=== PATIENT | female | born 1990 | race Caucasian/White ===

== ENCOUNTER 2016-07-02 21:10 | Emergency (ER) | payer MEDICAID ==
[~2016-07-02] VITALS: Ht 162.6 cm; Wt 177.3 kg
[~2016-07-02 21:10] MED LIST: 00186-0372-20 IH; AMOXICILLIN875 MG PO; PROAIR HFA0.09 MG/AC IH; SYNTHROID0.05 MG/TA PO; ULTRAM 50MG TAB50 MG PO
[2016-07-02 21:16] VITALS: TEMP 97.6
[2016-07-02 22:07] LABS: BASO % 0.6 % (0.0-2.0); EOS # 0.3 (0.0-0.7); EOS % 3.9 % (0-4.0); GRAN # 4.4 (1.4-6.5); GRAN % 63.2 % (42.2-75.2); HEMATOCRIT 38.4 % (37.0-47.0); HEMOGLOBIN 12.5 g/dl (12.5-16.0); LYMPH # 1.8 (1.2-3.4); LYMPH % 25.9 % (20.0-51.0); MEAN CELL VOLUME 89 fl (80.0-100.0); MEAN CORPUSCULAR HEMOGLOBIN 29 pg (27.0-31.0); MEAN CORPUSCULAR HGB CONC 33 g/dl (33.0-37.0); MEAN PLATELET VOLUME 9.5 fl (7.4-10.4); MONO # 0.4 (0.1-0.6); MONO % 6.1 % (1.7-9.3); PLATELET COUNT 385 K/mm3 (130-400); RED BLOOD COUNT 4.33 M/mm3 (4.10-5.30); REDCELL DISTRIBUTION WIDTH-CV 13.7 % (11.5-14.5); WHITE BLOOD COUNT 6.9 K/mm3 (4.8-10.8)
[2016-07-02 22:16] LABS: ADJUSTED CALCIUM 8.9 mg/dL (8.4-10.2); BILIRUBIN,TOTAL 0.8 mg/dL (0.0-1.0); CALCIUM 8.9 mg/dL (8.4-10.2); CREATININE, serum 0.63 mg/dL (0.52-1.25); POTASSIUM 3.8 mmol/L (3.4-5.0); TOTAL PROTEIN 7.6 gm/dL (6.4-8.2)
[2016-07-02] MEDS ORDERED: NYSTATIN POWDER15 GM TOP (23:45)
[2016-07-03 01:28] LABS: PH 6 (5-8); SQUAMOUS EPITHELIAL 20-50 /hpf; URINE APPEARANCE Cloudy; URINE BACTERIA Rare /hpf; URINE BILIRUBIN Negative (NEGATIVE); URINE BLOOD 3+ (NEGATIVE); URINE COLOR Yellow; URINE GLUCOSE Negative (NEGATIVE); URINE KETONE 2+ (NEGATIVE); URINE UROBILINOGEN Negative (NEGATIVE)
[2016-07-03 01:51] VITALS: BP 134/88; PULSE 78
== END 2016-07-03 01:53 | disposition home or self-care (01) ==
LOC: COL.ER 21:10
PROVIDERS: Emergency Medicine
DX: R10.84 Generalized abdominal pain (principal); Z98.84 Bariatric surgery status; Z98.0 Intestinal bypass and anastomosis status
CPT/HCPCS: J1170; J2405; J7030; Q9967

== ENCOUNTER 2016-07-05 05:49 | Emergency (ER) | payer MEDICAID ==
[~2016-07-05] VITALS: Ht 162.6 cm; Wt 177.3 kg
[~2016-07-05 05:49] MED LIST changes: +NYSTATIN POWDER15 GM TOP
[2016-07-05 05:52] VITALS: TEMP 98
[2016-07-05] MEDS ORDERED: DILAUDID 4MG TAB4 MG PO (05:57)
[2016-07-05] MEDS ORDERED: LOVENOX 4040 MG/0.4 SQ (05:57)
[2016-07-05] MEDS ORDERED: EPIPEN 2-PAK1 MG/ML IM (05:57)
[2016-07-05] MEDS ORDERED: NYSTATIN CREAM15 GM TP (07:03)
[2016-07-05 07:27] VITALS: BP 111/73; PULSE 66
== END 2016-07-05 07:27 | disposition home or self-care (01) ==
LOC: COL.ER 05:49
DX: B37.2 Candidiasis of skin and nail (principal)

== ENCOUNTER 2016-11-18 19:45 | Emergency (ER) | payer OTHER, MEDICAID ==
[~2016-11-18] VITALS: Ht 162.6 cm; Wt 140.9 kg
[~2016-11-18 19:45] MED LIST changes: +DILAUDID 4MG TAB4 MG PO; +EPIPEN 2-PAK1 MG/ML IM; +LOVENOX 4040 MG/0.4 SQ; +NYSTATIN CREAM15 GM TP
[2016-11-18 19:48] VITALS: TEMP 98.3
[2016-11-18 20:33] LABS: BASO # 0.1 (0.0-0.2); BASO % 0.6 % (0.0-2.0); EOS # 0.2 (0.0-0.7); EOS % 2.6 % (0-4.0); GRAN # 4.7 (1.4-6.5); GRAN % 56.8 % (42.2-75.2); HEMATOCRIT 38.8 % (37.0-47.0); HEMOGLOBIN 12.6 g/dl (12.5-16.0); LYMPH # 2.7 (1.2-3.4); LYMPH % 32.6 % (20.0-51.0); MEAN CELL VOLUME 92 fl (80.0-100.0); MEAN CORPUSCULAR HEMOGLOBIN 30 pg (27.0-31.0); MEAN CORPUSCULAR HGB CONC 33 g/dl (33.0-37.0); MEAN PLATELET VOLUME 11.1 fl (7.4-10.4); MONO # 0.6 (0.1-0.6); MONO % 7.3 % (1.7-9.3); PLATELET COUNT 270 K/mm3 (130-400); RED BLOOD COUNT 4.24 M/mm3 (4.10-5.30); REDCELL DISTRIBUTION WIDTH-CV 15.7 % (11.5-14.5); WHITE BLOOD COUNT 8.2 K/mm3 (4.8-10.8)
[2016-11-18 20:35] LABS: PH 5 (5-8); URINE APPEARANCE Cloudy; URINE BACTERIA Rare /hpf; URINE BILIRUBIN Negative (NEGATIVE); URINE BLOOD Negative (NEGATIVE); URINE COLOR Yellow; URINE GLUCOSE Negative (NEGATIVE); URINE KETONE Negative (NEGATIVE); URINE RBC 0-2 /hpf; URINE UROBILINOGEN Negative (NEGATIVE)
[2016-11-18 20:57] LABS: ADJUSTED CALCIUM 8.7 mg/dL (8.4-10.2); BILIRUBIN,TOTAL 0.4 mg/dL (0.0-1.0); CALCIUM 8.7 mg/dL (8.4-10.2); CREATININE, serum 0.56 mg/dL (0.52-1.25); POTASSIUM 3.6 mmol/L (3.4-5.0); TOTAL PROTEIN 7.2 gm/dL (6.4-8.2)
[2016-11-18] MEDS ORDERED: ZOFRAN ODT4 MG PO (21:09)
[2016-11-18 22:03] VITALS: BP 110/59; PULSE 54
== END 2016-11-18 22:06 | disposition home or self-care (01) ==
LOC: COL.ER 19:45
PROVIDERS: Emergency Medicine
DX: O21.9 Vomiting of pregnancy, unspecified (principal); O99.211 Obesity complicating pregnancy, first trimester; Z68.43 Body mass index [BMI] 50.0-59.9, adult; Z98.84 Bariatric surgery status; O99.281 Endocrine, nutritional and metabolic diseases complicating pregnancy, first trimester; E03.9 Hypothyroidism, unspecified; Z3A.01 Less than 8 weeks gestation of pregnancy
CPT/HCPCS: J2765; J7030

== ENCOUNTER 2017-03-14 10:03 | Emergency (ER) | payer OTHER, MEDICAID ==
[~2017-03-14] VITALS: Ht 162.6 cm; Wt 136.4 kg
[~2017-03-14 10:03] MED LIST changes: +ZOFRAN ODT4 MG PO
[2017-03-14 10:05] VITALS: BP 114/63; TEMP 98.8
[2017-03-14] MEDS ORDERED: PULMICORT90 MCG/Act IH (10:10)
[2017-03-14] MEDS ORDERED: FLAGYL500 MG PO (10:10)
[2017-03-14 11:03] LABS: BASO % 0.6 % (0.0-2.0); EOS # 0.1 (0.0-0.7); EOS % 1.8 % (0-4.0); GRAN # 4.6 (1.4-6.5); GRAN % 67.9 % (42.2-75.2); LYMPH # 1.4 (1.2-3.4); LYMPH % 20.5 % (20.0-51.0); MEAN CELL VOLUME 96 fl (80.0-100.0); MEAN CORPUSCULAR HGB CONC 33 g/dl (33.0-37.0); MEAN PLATELET VOLUME 10.3 fl (7.4-10.4); MONO # 0.6 (0.1-0.6); MONO % 8.8 % (1.7-9.3); PLATELET COUNT 231 K/mm3 (130-400); RED BLOOD COUNT 3.26 M/mm3 (4.10-5.30); WHITE BLOOD COUNT 6.8 K/mm3 (4.8-10.8)
[2017-03-14 11:05] LABS: HEMATOCRIT 31.2 % (37.0-47.0); HEMOGLOBIN 10.2 g/dl (12.5-16.0); MEAN CORPUSCULAR HEMOGLOBIN 31 pg (27.0-31.0)
[2017-03-14 11:06] LABS: COLLECTION METHOD CATHETER
[2017-03-14 11:11] LABS: MUCOUS Present /lpf; PH 6 (5-8); SQUAMOUS EPITHELIAL 0-2 /hpf; URINE APPEARANCE Clear; URINE BACTERIA None Seen /hpf; URINE BILIRUBIN Negative (NEGATIVE); URINE BLOOD Negative (NEGATIVE); URINE COLOR Yellow; URINE GLUCOSE Negative (NEGATIVE); URINE KETONE Negative (NEGATIVE); URINE LEUKOCYTE ESTERASE Trace (NEGATIVE); URINE PROTEIN(semi-quant) Negative (NEGATIVE); URINE RBC 0-2 /hpf; URINE UROBILINOGEN Negative (NEGATIVE); URINE WBC 0-2 /hpf
[2017-03-14 11:14] LABS: ADJUSTED CALCIUM 9.1 mg/dL (8.4-10.2); ALBUMIN 2.9 gm/dL (3.5-5.0); BILIRUBIN,TOTAL 0.2 mg/dL (0.0-1.0); CALCIUM 8.2 mg/dL (8.4-10.2); CREATININE, serum 0.55 mg/dL (0.52-1.25); POTASSIUM 3.5 mmol/L (3.4-5.0); TOTAL PROTEIN 5.4 gm/dL (6.4-8.2)
[2017-03-14 11:30] LABS: INFLUENZA A NEGATIVE; INFLUENZA B NEGATIVE
[2017-03-14 12:31] VITALS: PULSE 80
== END 2017-03-14 12:31 | disposition home or self-care (01) ==
LOC: COL.ER 10:03
PROVIDERS: Physician Assistant
DX: O99.012 Anemia complicating pregnancy, second trimester (principal); D64.9 Anemia, unspecified; O21.2 Late vomiting of pregnancy; O46.92 Antepartum hemorrhage, unspecified, second trimester; O26.892 Other specified pregnancy related conditions, second trimester; O99.810 Abnormal glucose complicating pregnancy; O99.512 Diseases of the respiratory system complicating pregnancy, second trimester; J45.909 Unspecified asthma, uncomplicated; R10.31 Right lower quadrant pain; R10.11 Right upper quadrant pain; R19.7 Diarrhea, unspecified; E16.2 Hypoglycemia, unspecified; Z90.89 Acquired absence of other organs; Z90.49 Acquired absence of other specified parts of digestive tract; Z98.84 Bariatric surgery status; Z3A.24 24 weeks gestation of pregnancy
CPT/HCPCS: J7030

== ENCOUNTER 2017-03-14 12:19 | Outpatient (CLI) | payer OTHER, MEDICAID ==
[~2017-03-14] VITALS: Ht 162.6 cm; Wt 137.4 kg
[~2017-03-14 12:19] MED LIST changes: +FLAGYL500 MG PO; +PULMICORT90 MCG/Act IH
== END 2017-03-14 13:35 | disposition home or self-care (01) ==
LOC: LDRO 12:19
DX: O21.9 Vomiting of pregnancy, unspecified (principal); R11.10 Vomiting, unspecified; Z3A.00 Weeks of gestation of pregnancy not specified

== ENCOUNTER 2017-04-13 16:38 | Emergency (ER) | payer MEDICAID ==
[~2017-04-13] VITALS: Ht 162.6 cm; Wt 143.8 kg
[2017-04-13 16:41] VITALS: TEMP 97.9
[2017-04-13] MEDS ORDERED: SYNTHROID0.1 MG/TAB PO (16:45)
[2017-04-13] MEDS ORDERED: PRENATAL PLUS PO (16:45)
[2017-04-13 17:37] LABS: COLLECTION METHOD CLEAN CATCH
[2017-04-13 17:42] LABS: BASO % 0.3 % (0.0-2.0); EOS # 0.1 (0.0-0.7); EOS % 0.7 % (0-4.0); GRAN # 7.2 (1.4-6.5); GRAN % 72.8 % (42.2-75.2); LYMPH # 1.7 (1.2-3.4); LYMPH % 17.5 % (20.0-51.0); MEAN CELL VOLUME 96 fl (80.0-100.0); MEAN CORPUSCULAR HGB CONC 32 g/dl (33.0-37.0); MEAN PLATELET VOLUME 10.2 fl (7.4-10.4); MONO # 0.8 (0.1-0.6); MONO % 8.1 % (1.7-9.3); PLATELET COUNT 303 K/mm3 (130-400); RED BLOOD COUNT 3.71 M/mm3 (4.10-5.30); WHITE BLOOD COUNT 9.9 K/mm3 (4.8-10.8)
[2017-04-13 17:43] LABS: HEMATOCRIT 35.5 % (37.0-47.0); HEMOGLOBIN 11.4 g/dl (12.5-16.0); MEAN CORPUSCULAR HEMOGLOBIN 31 pg (27.0-31.0)
[2017-04-13 17:49] LABS: ADJUSTED CALCIUM 8.9 mg/dL (8.4-10.2); ALBUMIN 3.4 gm/dL (3.5-5.0); BILIRUBIN,TOTAL 0.3 mg/dL (0.0-1.0); CALCIUM 8.4 mg/dL (8.4-10.2); CREATININE, serum 0.52 mg/dL (0.52-1.25); POTASSIUM 3.7 mmol/L (3.4-5.0); TOTAL PROTEIN 6.6 gm/dL (6.4-8.2)
[2017-04-13 17:51] LABS: MUCOUS Present /lpf; PH 6 (5-8); URINE APPEARANCE Hazy; URINE BACTERIA Rare /hpf; URINE BILIRUBIN Negative (NEGATIVE); URINE BLOOD Negative (NEGATIVE); URINE CALCIUM OXALATE CRYSTAL Present /hpf; URINE COLOR Yellow; URINE GLUCOSE Negative (NEGATIVE); URINE KETONE Negative (NEGATIVE); URINE LEUKOCYTE ESTERASE Trace (NEGATIVE); URINE PROTEIN(semi-quant) Negative (NEGATIVE); URINE UROBILINOGEN Negative (NEGATIVE)
[2017-04-13 18:24] VITALS: BP 105/56; PULSE 67
== END 2017-04-13 18:24 | disposition home or self-care (01) ==
LOC: COL.ER 16:38
PROVIDERS: Family Medicine
DX: O99.283 Endocrine, nutritional and metabolic diseases complicating pregnancy, third trimester (principal); E86.0 Dehydration; O26.893 Other specified pregnancy related conditions, third trimester; R53.1 Weakness; O99.513 Diseases of the respiratory system complicating pregnancy, third trimester; J45.909 Unspecified asthma, uncomplicated; Z3A.29 29 weeks gestation of pregnancy
CPT/HCPCS: J7030

== ENCOUNTER → 2017-05-20 | Outpatient (CLI) | payer MEDICAID ==
[~2017-05-20] VITALS: Ht 165.1 cm; Wt 143.3 kg
[~2017-05-20] MED LIST changes: +PRENATAL PLUS PO; +SYNTHROID0.1 MG/TAB PO
[2017-05-20 23:38] VITALS: BP 114/56; PULSE 76; TEMP 98.4
== END ==
LOC: LDRO 23:15
DX: O36.8130 Decreased fetal movements, third trimester, not applicable or unspecified (principal); Z3A.34 34 weeks gestation of pregnancy

== ENCOUNTER 2017-05-28 22:09 | Outpatient (CLI) | payer MEDICAID ==
[~2017-05-28] VITALS: Ht 162.6 cm; Wt 154.5 kg
[2017-05-28 22:50] VITALS: BP 125/68; PULSE 86
[2017-05-28 23:08] VITALS: BP 125/68; PULSE 86; TEMP 98
[2017-05-29 00:05] VITALS: BP 119/76; PULSE 67; TEMP 98.3
== END 2017-05-29 00:20 | disposition home or self-care (01) ==
LOC: LDRO 22:09
DX: Z34.03 Encounter for supervision of normal first pregnancy, third trimester (principal); Z3A.35 35 weeks gestation of pregnancy

== ENCOUNTER 2017-06-20 06:26 | Inpatient (IN) | payer MEDICAID ==
[2017-06-20] VITALS (22 sets, daily range): BP systolic 85–119; BP diastolic 43–65; PULSE 68–88; TEMP 98.2–98.6
[~2017-06-20] VITALS: Ht 162.6 cm; Wt 330.0 kg
[2017-06-20 11:20] LABS: BASO % 0.3 % (0.0-2.0); EOS % 0.1 % (0-4.0); GRAN # 10.5 (1.4-6.5); GRAN % 84.2 % (42.2-75.2); LYMPH # 1.2 (1.2-3.4); LYMPH % 9.9 % (20.0-51.0); MEAN CELL VOLUME 93 fl (80.0-100.0); MEAN CORPUSCULAR HGB CONC 33 g/dl (33.0-37.0); MEAN PLATELET VOLUME 10.2 fl (7.4-10.4); MONO # 0.6 (0.1-0.6); MONO % 4.9 % (1.7-9.3); PLATELET COUNT 247 K/mm3 (130-400); RED BLOOD COUNT 3.55 M/mm3 (4.10-5.30); REDCELL DISTRIBUTION WIDTH-CV 14.3 % (11.5-14.5)
[2017-06-20 11:22] LABS: HEMOGLOBIN 10.8 g/dl (12.5-16.0); MEAN CORPUSCULAR HEMOGLOBIN 30 pg (27.0-31.0)
[2017-06-20 11:59] LABS: ALBUMIN 2.8 gm/dL (3.5-5.0); BILIRUBIN,TOTAL 0.1 mg/dL (0.0-1.0); CALCIUM 8.3 mg/dL (8.4-10.2); CREATININE, serum 0.59 mg/dL (0.52-1.25); POTASSIUM 4.4 mmol/L (3.4-5.0); TOTAL PROTEIN 5.8 gm/dL (6.4-8.2)
[2017-06-21 08:03] LABS: HEMATOCRIT 30.3 % (37.0-47.0); HEMOGLOBIN 9.8 g/dl (12.5-16.0)
[2017-06-21 09:00] VITALS: BP 119/56; PULSE 79; TEMP 98.2
[2017-06-21 16:00] VITALS: BP 113/60; PULSE 101; TEMP 98.1
[2017-06-21 22:15] VITALS: BP 97/52; PULSE 99; TEMP 97.4
[2017-06-22 07:15] VITALS: BP 113/58; PULSE 71; TEMP 97.5
[2017-06-22 15:45] VITALS: BP 109/51; PULSE 88; TEMP 98
[2017-06-22 23:00] VITALS: BP 115/67; PULSE 81; TEMP 97.8
[2017-06-23 07:39] VITALS: BP 113/49; PULSE 77; TEMP 97.8
[2017-06-23] MEDS ORDERED: TYLENOL 500MG500 MG PO (08:54)
[2017-06-23] MEDS ORDERED: DILAUDID 2MG TAB2 MG PO (08:56)
[2017-06-23 16:30] VITALS: BP 122/54; PULSE 86; TEMP 98.4
[2017-06-23 18:40] VITALS: BP 112/64; PULSE 78; TEMP 97.7
[2017-06-24 08:27] VITALS: BP 104/46; PULSE 65; TEMP 97.8
[2017-06-24 16:37] VITALS: BP 117/68; PULSE 77; TEMP 98.4
== END 2017-06-24 20:20 | disposition home or self-care (01) | DRG 765 ==
LOC: LDRO 06:26 → LDR 09:00 → OB 09:00 → LDR 09:00 → OB 17:27
PROVIDERS: Obstetrics & Gynecology
PROC: 10D00Z1 Extraction of Products of Conception, Low, Open Approach (ICD-10-PCS; principal; 2017-06-20)
DX: O76 Abnormality in fetal heart rate and rhythm complicating labor and delivery (principal); O41.03X0 Oligohydramnios, third trimester, not applicable or unspecified; O32.1XX0 Maternal care for breech presentation, not applicable or unspecified; O99.844 Bariatric surgery status complicating childbirth; O69.1XX0 Labor and delivery complicated by cord around neck, with compression, not applicable or unspecified; O99.284 Endocrine, nutritional and metabolic diseases complicating childbirth; E03.9 Hypothyroidism, unspecified; Z3A.38 38 weeks gestation of pregnancy; Z37.0 Single live birth
CPT/HCPCS: J0330; J0690; J1885; J2270; J2590; J2704; J3010; J7120

== ENCOUNTER 2018-03-17 13:57 | Outpatient (RCR) | payer OTHER ==
[~2018-03-17 13:57] MED LIST changes: +DILAUDID 2MG TAB2 MG PO; +TYLENOL 500MG500 MG PO
== END 2018-06-07 | disposition home or self-care (01) ==
LOC: WSOH
DX: S56.212A Strain of other flexor muscle, fascia and tendon at forearm level, left arm, initial encounter (principal); M25.532 Pain in left wrist; W50.0XXA Accidental hit or strike by another person, initial encounter; Y93.F9 Activity, other caregiving; Y92.218 Other school as the place of occurrence of the external cause; Y99.0 Civilian activity done for income or pay; Z79.899 Other long term (current) drug therapy
CPT/HCPCS: 24091; A6549

== ENCOUNTER 2019-07-25 10:15 | Outpatient (RCR) | payer MEDICARE | END 2019-09-15 | disposition still patient (30) | LOC: WSPT | DX: M92.51 Juvenile osteochondrosis of proximal tibia (principal); M92.52 Juvenile osteochondrosis of tibia tubercle; Z68.42 Body mass index [BMI] 45.0-49.9, adult; E66.01 Morbid (severe) obesity due to excess calories ==

== ENCOUNTER 2020-02-08 05:44 | Day surgery (SDC) | payer MEDICARE ==
[2020-02-08] VITALS (11 sets, daily range): BP systolic 90–191; BP diastolic 42–78; PULSE 16–86; TEMP 97.6–98.4
[~2020-02-08] VITALS: Ht 162.6 cm; Wt 140.8 kg
[2020-02-08] MEDS ORDERED: TYLENOL W/COD1 UDTAB PO (08:36)
[2020-02-08] MEDS ORDERED: IBU600 MG PO (08:36)
--- NOTE | 2020-02-08 09:07 | NUR ---
PATIENT TRANSPORTED PER CART TO BAY 8 ACCOMPANIED BY PACU STAFF. MONITORS REAPPLIED. VSS ON ROOM AIR. PATIENT STATES SHE IS COLD BUT DRIFTS BACK TO SLEEP. IV INFUSING WITHOUT PROBLEMS. VERBAL REPORT RECEIVED.
--- NOTE | 2020-02-08 09:15 | NUR ---
VSS ON ROOM AIR. PATIENT RESTING WITH EYES CLOSED AND EVEN RESPIRATIONS. EX AT BEDSIDE.
--- NOTE | 2020-02-08 09:30 | NUR ---
PATIENT RESTING WITH EYES CLOSED. PATIENT DOES RESPOND TO QUESTIONS ASKED. PATIENT C/O'S DISCOMFORT AND NAUSEA. WARM BLANKET APPLIED TO ABD. PATIENT DOES GOES BACK TO SLEEP WHEN NOT SPOKEN WITH.
--- NOTE | 2020-02-08 09:45 | NUR ---
VSS ON ROOM AIR. BLOOD PRESSURE INCREASING. WARM BLANKET APPLIED TO ABD. ZOFRAN 2 MG IV GIVEN AT 0957. PATIENT GIVEN WATER AND TOAST TO TRY WHEN NAUSEA IMPROVES. PATIENT RETURNS BACK TO EYES CLOSED.
--- NOTE | 2020-02-08 10:00 | NUR ---
BLOOD PRESSURE CONTINUES IMPROVING. PATIENT RESTING WITH EYES CLOSED.
--- NOTE | 2020-02-08 10:30 | NUR ---
VSS ON ROOM AIR. BLOOD PRESSURE CONSISTENT. PATIENT STATES THAT NAUSEA IN IMPROVING. 1047 PATIENT GIVEN TYLENOL W/CODIENE ORDERED FOR ABD DISCOMFORT. PATIENT EATS TOAST AND DRINKS WATER.
--- NOTE | 2020-02-08 11:05 | NUR ---
VSS ON ROOM AIR. PATIENT SITTING UP IN BED USING PHONE. PATIENT TALKING WITH EX . PATIENT TALKS WITH STAFF. PATIENT CONTINUES TO STATE SHE IS COLD. BLANKETS ON PATIENT. EATS ALL OF TOAST.
--- NOTE | 2020-02-08 11:33 | NUR ---
VSS ON ROOM AIR. PATIENT SITTING UP EATING JELLO AND DRINKING 2ND CUP OF WATER. PATIENT STATES CONTINUED DISCOMFORT TO LOWER ABD. GIVEN MOTRIN 600MG PO ORDERED. PATIENT TALKS WITH STAFF AND EX .
--- NOTE | 2020-02-08 11:55 | NUR ---
VSS. BLOOD PRESSURE CONSISTENT. PATIENT TALKING WITH EX AND WATCHING TV. PATIENT STATES DISCOMFORT IS IMPROVING. PATIENT SITS ON SIDE OF CART AND THEN STANDS. PATIENT STATES ALITTLE DIZZINESS BUT IMPROVES. PATIENT AMBULATES WITH A SLOW STEADY GAIT WITH 1 ASSIST TO BATHROOM. PATIENT ABLE TO VOID. CAREY PAD CHANGED. PATIENT AMBULATED WITH SLOW STEADY GAIT BACK TO CART AND CHANGES INTO STREET CLOTHES.
--- NOTE | 2020-02-08 12:20 | NUR ---
VSS ON ROOM AIR. PATIENT WAS ABLE TO VOID WITHOUT PROBLEMS. IV SITE DC'D WITH CATHETER TIP INTACT AND PRESSURE AND BANDAGE APPLIED. 1225 DISCHARGE INSTRUCTIONS GIVEN VERBAL AND DISCHARGE PACKET GIVEN TO PATIENT WITH RX INSIDE. QUESTIONS ANSWERED AND PATIENT VOICED UNDERSTANDING. 1240 PATIENT DISCHARGED PER WHEEL CHAIR ACCOMPANIED BY AMB STAFF NURSE TO PATIENT'S VAN. DRIVEN BY EX
== END 2020-02-08 12:40 | disposition home or self-care (01) ==
LOC: SDCO 05:44
PROVIDERS: Student in an Organized Health Care Education/Training Program
DX: N94.6 Dysmenorrhea, unspecified (principal); N93.9 Abnormal uterine and vaginal bleeding, unspecified; R10.2 Pelvic and perineal pain; E03.9 Hypothyroidism, unspecified; L73.9 Follicular disorder, unspecified; J45.909 Unspecified asthma, uncomplicated; K21.9 Gastro-esophageal reflux disease without esophagitis; G47.33 Obstructive sleep apnea (adult) (pediatric); M92.50 Unspecified juvenile osteochondrosis of tibia and fibula; F32.9 Major depressive disorder, single episode, unspecified; F41.9 Anxiety disorder, unspecified; E66.01 Morbid (severe) obesity due to excess calories; Z68.43 Body mass index [BMI] 50.0-59.9, adult; Z20.828 Contact with and (suspected) exposure to other viral communicable diseases; Z88.6 Allergy status to analgesic agent; Z88.5 Allergy status to narcotic agent; Z98.84 Bariatric surgery status; Z98.891 History of uterine scar from previous surgery; Z91.410 Personal history of adult physical and sexual abuse; Z90.49 Acquired absence of other specified parts of digestive tract; Z79.899 Other long term (current) drug therapy
CPT/HCPCS: J0690; J1100; J1170; J1885; J2405; J2550; J2704; J2710; J3010; J7120

== ENCOUNTER 2020-07-27 17:03 | Emergency (ER) | payer MEDICARE ==
[~2020-07-27] VITALS: Ht 162.6 cm; Wt 139.5 kg
[~2020-07-27 17:03] MED LIST changes: +IBU600 MG PO; +TYLENOL W/COD1 UDTAB PO
[2020-07-27 17:13] VITALS: TEMP 98.2
[2020-07-27 18:22] LABS: BASO % 0.5 % (0.0-2.0); EOS % 0.2 % (0-4.0); GRAN # 5.2 (1.4-6.5); GRAN % 80.4 % (42.2-75.2); HEMATOCRIT 39.2 % (37.0-47.0); HEMOGLOBIN 12.7 g/dl (12.5-16.0); LYMPH % 15.9 % (20.0-51.0); MEAN CELL VOLUME 91 fl (80.0-100.0); MEAN CORPUSCULAR HEMOGLOBIN 29 pg (27.0-31.0); MEAN CORPUSCULAR HGB CONC 32 g/dl (33.0-37.0); MEAN PLATELET VOLUME 10.5 fl (7.4-10.4); MONO # 0.2 (0.1-0.6); MONO % 2.5 % (1.7-9.3); PLATELET COUNT 231 K/mm3 (130-400); RED BLOOD COUNT 4.32 M/mm3 (4.10-5.30); REDCELL DISTRIBUTION WIDTH-CV 14.6 % (11.5-14.5)
[2020-07-27 18:33] LABS: ALBUMIN 3.1 gm/dL (3.5-5.0); BILIRUBIN,TOTAL 0.3 mg/dL (0.0-1.0); CALCIUM 7.2 mg/dL (8.4-10.2); CREATININE, serum 0.69 (0.52-1.25); POTASSIUM 3.3 mmol/L (3.4-5.0); TOTAL PROTEIN 5.5 gm/dL (6.4-8.2)
[2020-07-27 19:04] LABS: THYROID STIMULATING HORMONE 2.1 uIU/mL (0.465-4.680)
[2020-07-27 19:13] LABS: COLLECTION METHOD CLEAN CATCH
[2020-07-27 19:39] LABS: PH 6 (5-8); SQUAMOUS EPITHELIAL 0-2 /hpf; URINE APPEARANCE Hazy; URINE BACTERIA Many /hpf; URINE BILIRUBIN Negative (NEGATIVE); URINE BLOOD 2+ (NEGATIVE); URINE COLOR Yellow; URINE GLUCOSE Negative (NEGATIVE); URINE KETONE Negative (NEGATIVE); URINE LEUKOCYTE ESTERASE Trace (NEGATIVE); URINE NITRATE Negative (NEGATIVE); URINE PROTEIN(semi-quant) Negative (NEGATIVE); URINE RBC 0-2 /hpf; URINE UROBILINOGEN Negative (NEGATIVE)
[2020-07-27 20:00] VITALS: BP 112/62; PULSE 88
[2020-07-28] MEDS ORDERED: MACROBID 1100 MG/CAP PO ×2 (12:23)
[2020-07-29] MEDS ORDERED: VANTIN100 MG PO (12:43)
== END 2020-07-27 20:00 | disposition home or self-care (01) ==
LOC: COL.ER 17:03
PROVIDERS: Physician Assistant
DX: R19.5 Other fecal abnormalities (principal); R53.81 Other malaise; E03.9 Hypothyroidism, unspecified; E66.01 Morbid (severe) obesity due to excess calories; Z90.49 Acquired absence of other specified parts of digestive tract; Z98.84 Bariatric surgery status; Z88.6 Allergy status to analgesic agent; Z79.890 Hormone replacement therapy; Z68.43 Body mass index [BMI] 50.0-59.9, adult
CPT/HCPCS: J7030

== ENCOUNTER 2020-12-15 18:04 | Outpatient (CLI) | payer MEDICARE, MEDICAID ==
[~2020-12-15] VITALS: Ht 162.6 cm; Wt 154.5 kg
[~2020-12-15 18:04] MED LIST changes: +MACROBID 1100 MG/CAP PO; +VANTIN100 MG PO
--- NOTE | 2020-12-15 18:15 | NUR ---
PT ARRIVES AMBLATORY TO UNIT C/O LOWER BACK PAIN AND "LEAKING OF FLUID", PT REPORTS POSITIVE MOVEMENT AND STATES SHE IS HAVING CONTRACTION LIKE PAIN Q5-10 MINUTES AND THEN CONTINUES TO SAY IT IS MORE OF A CONSTANT ACHE TO HER LOWER BACK. REPORTS RECENT UTI AND HX.CHLAMYDIA WITH THIS . OB IS IN [place], NO PRENATALS AVAILABLE AT THIS TIME, CAME TO [facility] PER FOR CONVENIENCE. SVE CLOSED, AMNISURE TEST NEGATIVE, DOPPLER FHR 145-150 DUE TO PT HABITUS, NO CONTRACTIONS VIA TOCO OR PALPATION. SEE PHYSICIAN NOTIFICATION.
[2020-12-15] MEDS ORDERED: ASPIRIN 81M81 MG/TA2 PO (18:37)
[2020-12-15 18:45] VITALS: BP 115/70; PULSE 77; TEMP 99.3
[2020-12-15 19:15] VITALS: BP 127/58; PULSE 76
--- NOTE | 2020-12-15 19:30 | NUR ---
UNABLE TO APPROPRIATELY TRACE FHR DUE TO PT HABITUS, DOPPLER X2 FHR 145-150 THROUGHOUT THIS ENCOUNTER, PT CONTINUES TO REPORT POSITIVE MOVEMENT AND CONSTANT LOW BACK PAIN, DENIES FURTHER LEAKING OF FLUIDS AT THIS TIME
[2020-12-15 19:32] LABS: COLLECTION METHOD CLEAN CATCH
[2020-12-15 19:35] VITALS: TEMP 97.5
[2020-12-15 19:38] LABS: MUCOUS Present /lpf; PH 5 (5-8); URINE APPEARANCE Hazy; URINE BACTERIA Occasional /hpf; URINE BILIRUBIN Negative (NEGATIVE); URINE BLOOD Negative (NEGATIVE); URINE COLOR Yellow; URINE GLUCOSE Negative (NEGATIVE); URINE KETONE Negative (NEGATIVE); URINE LEUKOCYTE ESTERASE Negative (NEGATIVE); URINE NITRATE Negative (NEGATIVE); URINE PROTEIN(semi-quant) Negative (NEGATIVE); URINE UROBILINOGEN Negative (NEGATIVE)
[2020-12-15 19:42] VITALS: BP 114/61; PULSE 68; TEMP 97.5
--- NOTE | 2020-12-15 19:43 | NUR ---
MIKE ORDERS PER THAT PT MAY DC HOME, SEE PROVIDER NOTIFICATION, ALL DC PAPERWORK REVIEWED AND UNDERSTOOD, PT AMBULATORY IN STABLE CONDITION FROM UNIT
== END 2020-12-15 19:53 | disposition home or self-care (01) ==
LOC: LDRO 18:04 → LDR 18:10 → LDRO 18:10 → LDR 19:53 → LDRO 19:53
PROVIDERS: Obstetrics & Gynecology
DX: O62.9 Abnormality of forces of labor, unspecified (principal); O42.90 Premature rupture of membranes, unspecified as to length of time between rupture and onset of labor, unspecified weeks of gestation; Z3A.00 Weeks of gestation of pregnancy not specified
CPT/HCPCS: OP

== ENCOUNTER 2021-01-09 14:01 | Outpatient (CLI) | payer MEDICARE, MEDICAID ==
[2021-01-09] VITALS (7 sets, daily range): BP systolic 100–119; BP diastolic 50–61; PULSE 68–88; TEMP 98.1
[~2021-01-09] VITALS: Ht 162.6 cm; Wt 159.1 kg
[~2021-01-09 14:01] MED LIST changes: +ASPIRIN 81M81 MG/TA2 PO
--- NOTE | 2021-01-09 14:05 | NUR ---
Patient ambulatory to LR3 and FHR/TOCO monitors placed. Difficulty tracing FHR monitor being adjusted. Patient states "I am a patient of Dr. Varghese at [facility], I fell towards my front and caught myself for the most part with my hand/arm, but fell forward at about 1315, I just wanted to make sure baby was okay. I am having some sharp lower pain more on my left side that comes and goes and my lower back is sore". Patient denies any regular contractions/leaking of fluid/vaginal bleeding. movement felt and heard by this RN at bedside. Plan of care discussed.
[2021-01-09] MEDS ORDERED: FERROUSGLUC256MG (14:57)
[2021-01-09] MEDS ORDERED: SYNTHROID0.05 MG/TA PO (14:57)
[2021-01-09] MEDS ORDERED: LEVEMIR100 U/ML SQ (14:58)
[2021-01-09] MEDS ORDERED: VITAMIN D31000 I1 PO (14:58)
--- NOTE | 2021-01-09 16:46 | NUR ---
FHT: 1615: DIFFICULTY TRACING FHT DUE TO MOVEMENT AND MATERNAL HABITUS. RN AT BS ADJUSTING EFM. MOVEMENT AUDIBLE
--- NOTE | 2021-01-09 17:53 | NUR ---
1745: PT. OKAY TO GO HOME PER DR. SHRESTHA. MONITORS REMOVED AND DISCHARGE PAPERWORK GONE OVER. WENT OVER RETURN PRECAUTIONS W/ PT. INFORMED HER TO CALL HER OB IF SHE HAS ANY QUESTIONS/CONCERNS OR TO COME BACK UP TO L&D. PT. STATES UNDERSTANDING AND HAS NO QUESTIONS OR CONCERNS AT THIS TIME. RN WALKED W/ PT. TO FRONT OF UNIT. STEADY GAIT. PT. STABLE UPON DISCHARGE
== END 2021-01-09 17:45 | disposition home or self-care (01) ==
LOC: LDRO 14:01 → LDR 17:35 → LDRO 17:45
DX: O9A.213 Injury, poisoning and certain other consequences of external causes complicating pregnancy, third trimester (principal); Z3A.28 28 weeks gestation of pregnancy
CPT/HCPCS: OP

== ENCOUNTER 2021-04-18 18:04 | Emergency (ER) | payer MEDICARE, MEDICAID ==
[~2021-04-18] VITALS: Ht 162.6 cm; Wt 145.5 kg
[~2021-04-18 18:04] MED LIST changes: +FERROUSGLUC256MG; +LEVEMIR100 U/ML SQ; +VITAMIN D31000 I1 PO
[2021-04-18 18:54] VITALS: TEMP 98.9
[2021-04-18 21:34] LABS: BASO # 0.1 K/mm3 (0.0-0.2); BASO % 0.4 % (0.0-2.0); EOS % 0.2 % (0-4.0); GRAN # 9.6 K/mm3 (1.4-6.5); GRAN % 85.5 % (42.2-75.2); HEMOGLOBIN 11.3 g/dl (12.5-16.0); LYMPH % 8.6 % (20.0-51.0); MEAN CELL VOLUME 87 fl (80.0-100.0); MEAN CORPUSCULAR HEMOGLOBIN 28 pg (27.0-31.0); MEAN CORPUSCULAR HGB CONC 32 g/dl (33.0-37.0); MEAN PLATELET VOLUME 9.9 fl (7.4-10.4); MONO # 0.5 K/mm3 (0.1-0.6); MONO % 4.8 % (1.7-9.3); PLATELET COUNT 296 K/mm3 (130-400); REDCELL DISTRIBUTION WIDTH-CV 14.3 % (11.5-14.5)
[2021-04-18 21:45] LABS: HEMATOCRIT 35.8 % (37.0-47.0)
[2021-04-18 21:52] LABS: ALBUMIN 3.4 gm/dL (3.5-5.0); BILIRUBIN,TOTAL 0.3 mg/dL (0.2-1.2); CALCIUM 8.5 mg/dL (8.4-10.2); CREATININE, serum 0.85 mg/dL (0.57-1.11); POTASSIUM 3.8 mmol/L (3.5-4.5); TOTAL PROTEIN 6.9 gm/dL (6.2-8.1)
[2021-04-18 22:11] LABS: TSH w REFLEX 2.966 uIU/mL (0.350-4.940)
[2021-04-18 23:06] VITALS: BP 120/75; PULSE 88
== END 2021-04-18 23:06 | disposition home or self-care (01) ==
LOC: COL.ER 18:04
PROVIDERS: Student in an Organized Health Care Education/Training Program
DX: R53.81 Other malaise (principal); E05.90 Thyrotoxicosis, unspecified without thyrotoxic crisis or storm; Z20.822 Contact with and (suspected) exposure to COVID-19; Z79.890 Hormone replacement therapy

== ENCOUNTER 2021-08-05 11:15 | Outpatient (RCR) | payer MEDICARE, MEDICAID | END 2021-08-15 | disposition still patient (30) | LOC: WSPT | DX: M48.00 Spinal stenosis, site unspecified (principal); G89.29 Other chronic pain ==

== ENCOUNTER 2022-01-08 21:22 | Emergency (ER) | payer MEDICARE, MEDICAID ==
[~2022-01-08] VITALS: Ht 152.4 cm; Wt 150.0 kg
[2022-01-08 22:36] VITALS: BP 140/82; PULSE 62; TEMP 97.3
== END 2022-01-08 22:36 | disposition home or self-care (01) ==
LOC: COL.ER 21:22
DX: T78.40XA Allergy, unspecified, initial encounter (principal); Z28.310 Unvaccinated for COVID-19
CPT/HCPCS: J2930; J7030

== ENCOUNTER 2022-01-16 11:31 | Emergency (ER) | payer MEDICARE, MEDICAID ==
[~2022-01-16] VITALS: Ht 162.6 cm; Wt 150.0 kg
[2022-01-16 11:52] VITALS: TEMP 98.9
[2022-01-16 12:31] LABS: BASO % 0.7 % (0.0-2.0); EOS # 0.3 K/mm3 (0.0-0.7); EOS % 4.6 % (0.0-4.0); GRAN # 2.8 K/mm3 (1.4-6.5); GRAN % 48.2 % (42.2-75.2); HEMATOCRIT 39.6 % (37.0-47.0); HEMOGLOBIN 12.7 g/dl (12.5-16.0); LYMPH # 2.1 K/mm3 (1.2-3.4); LYMPH % 35.3 % (20.0-51.0); MEAN CELL VOLUME 92 fl (80.0-100.0); MEAN CORPUSCULAR HEMOGLOBIN 30 pg (27-31); MEAN CORPUSCULAR HGB CONC 32 g/dl (33.0-37.0); MEAN PLATELET VOLUME 9.7 fl (7.4-10.4); MONO # 0.7 K/mm3 (0.1-0.6); PLATELET COUNT 311 K/mm3 (130-400); RED BLOOD COUNT 4.29 M/mm3 (4.10-5.30); REDCELL DISTRIBUTION WIDTH-CV 14.3 % (11.5-14.5)
[2022-01-16 12:45] LABS: ALBUMIN 3.5 gm/dL (3.5-5.0); BILIRUBIN,TOTAL 0.4 mg/dL (0.2-1.2); CALCIUM 7.2 mg/dL (8.4-10.2); CREATININE, serum 0.7 mg/dL (0.57-1.11); POTASSIUM 3.7 mmol/L (3.5-4.5); TOTAL PROTEIN 6.6 gm/dL (6.2-8.1)
[2022-01-16 14:46] LABS: TSH w REFLEX 2.841 uIU/mL (0.350-4.940)
[2022-01-16] MEDS ORDERED: ROCALTROL0.5 MCG PO (14:56)
[2022-01-16 15:19] VITALS: BP 102/59; PULSE 56
== END 2022-01-16 15:25 | disposition home or self-care (01) ==
LOC: COL.ER 11:31
PROVIDERS: Emergency Medicine
DX: E83.51 Hypocalcemia (principal); Z90.89 Acquired absence of other organs; Z28.310 Unvaccinated for COVID-19
CPT/HCPCS: J0610

== ENCOUNTER → 2022-02-03 | Outpatient (CLI) | payer MEDICARE, MEDICAID ==
[~2022-02-03] MED LIST changes: +ROCALTROL0.5 MCG PO
[2022-02-03 11:01] LABS: CALCIUM 7.7 mg/dL (8.4-10.2); CREATININE, serum 0.87 mg/dL (0.57-1.11); MAGNESIUM 2.1 mg/dL (1.6-2.6); PHOSPHOROUS 4.7 mg/dL (2.3-4.7); POTASSIUM 3.8 mmol/L (3.5-4.5)
[2022-02-03 11:22] LABS: THYROID STIMULATING HORMONE 50.985 uIU/mL (0.350-4.940)
== END ==
LOC: COL.LAB 10:08
PROVIDERS: Internal Medicine Endocrinology, Diabetes & Metabolism
DX: E83.51 Hypocalcemia (principal); E03.9 Hypothyroidism, unspecified

== ENCOUNTER 2022-06-13 17:49 | Observation (INO) | payer MEDICARE, MEDICAID ==
[~2022-06-13] VITALS: Ht 162.6 cm; Wt 139.1 kg
[~2022-06-13 17:49] MED LIST changes: +AMOXICILLIN 8751 TAB PO; +ANUSOL-HC SUPPO25 MG RC; +CALCIUM CITRAT200 M2; +MAGNESIUM200 MG PO; +SYNTHROID0.2 MG/TAB PO; +VITAMIN D250 MCG PO; +VITAMIND3 5000 PO
[2022-06-13 19:15] VITALS: BP 101/65; PULSE 87; TEMP 99.5
[2022-06-13] MEDS ORDERED: CYMBALTA 30MG30 MG PO (21:08)
[2022-06-13] MEDS ORDERED: VITAMIN D 50,1.25 MG PO (21:09)
[2022-06-13] MEDS ORDERED: SYNTHROID0.2 MG/TAB PO (21:09)
[2022-06-13] MEDS ORDERED: MAG-OX 400400 MG/TAB PO (21:12)
[2022-06-13] MEDS ORDERED: CALCIUM CITRAT200 M2 PO (21:13)
[2022-06-13] MEDS ORDERED: IRON TABLETS325 MG PO (21:14)
[2022-06-13] MEDS ORDERED: ROCALTROL0.5 MCG PO (21:15)
[2022-06-13 22:09] LABS: CALCIUM 7.9 mg/dL (8.4-10.2); CREATININE, serum 0.78 mg/dL (0.57-1.11); MAGNESIUM 1.7 mg/dL (1.6-2.6); POTASSIUM 3.8 mmol/L (3.5-4.5)
[2022-06-13 23:43] VITALS: BP 111/59; PULSE 85; TEMP 98.4
--- NOTE | 2022-06-13 23:50 | NUR ---
THE PATIENT ARRIVED AT 19:05 VIA EMS FROM [facility]. THE PATIETN HAD VANCOMYCIN 2 GM INFUSING AT THIS TIME. THE PATIENT WAS ALERT AND ORIENTED UPON ARRIVAL AND ABLE TO TRANSFER SELF TO THE BED. THE PATIENT WAS ORIENTED TO THE ROOM AND BED CONTROLS. WILL MONITOR.
[2022-06-14] VITALS (11 sets, daily range): BP systolic 101–127; BP diastolic 45–60; PULSE 79–89; TEMP 97.3–98.9
[2022-06-14] LABS: COLLECTION METHOD CLEAN CATCH
[2022-06-14 00:07] LABS: PH 5.5 (5.0-8.5); URINE APPEARANCE Clear (CLEAR/HAZY); URINE BLOOD Negative (NEGATIVE); URINE COLOR Yellow (YELLOW); URINE GLUCOSE Negative (NEGATIVE); URINE KETONE Negative (NEGATIVE); URINE NITRATE Negative (NEGATIVE); URINE PROTEIN(semi-quant) Negative (NEGATIVE); URINE UROBILINOGEN 0.2 E.U/dL (0.2-1.0)
[2022-06-14 00:11] LABS: URINE BACTERIA None Seen /hpf (NONE SEEN); URINE RBC 0-2 /hpf (0-2)
--- NOTE | 2022-06-14 03:40 | NUR ---
32 yo female admitted for further care and management of sepsis secondary to a possible line infection (portacath). ht 162.56 cm wt 151.8 kg (adj wt 93.5 kg) SCr 0.78 with estimated CrCl >60 ml/min half life 9.8 hours Plan: Patient may not follow population based kinetics secondary to body habtitus (BMI 57.1 kg/m2). Patient received an initial loading dose of vancomycin 2000 mg prior to transfer; will give a supplemental loading doses of vancomycin 1000 mg for a total loading dose of 3000 mg (19.8 mg/kg); followed by a maintenance regimen of vancomycin 1000 mg q8h to target a goal trough of 15-20 mcg/ml. Will follow patient's renal function, micro data, and vancomycin levels as indicated to assess for any necessary changes to regimen. Thank you for this dosing consult.
[2022-06-14 06:59] LABS: BASO % 0.4 % (0.0-2.0); EOS # 0.3 K/mm3 (0.0-0.7); EOS % 3.3 % (0.0-4.0); GRAN # 5.7 K/mm3 (1.4-6.5); GRAN % 58.2 % (42.2-75.2); HEMOGLOBIN 10.5 g/dl (12.5-16.0); LYMPH # 2.6 K/mm3 (1.2-3.4); LYMPH % 26.3 % (20.0-51.0); MEAN CELL VOLUME 87 fl (80.0-100.0); MEAN CORPUSCULAR HEMOGLOBIN 27 pg (27-31); MEAN CORPUSCULAR HGB CONC 31 g/dl (33.0-37.0); MEAN PLATELET VOLUME 9.5 fl (7.4-10.4); MONO # 1.1 K/mm3 (0.1-0.6); MONO % 11.5 % (1.7-9.3); PLATELET COUNT 268 K/mm3 (130-400); RED BLOOD COUNT 3.85 M/mm3 (4.10-5.30); REDCELL DISTRIBUTION WIDTH-CV 14.2 % (11.5-14.5)
[2022-06-14 07:07] LABS: CALCIUM 7.3 mg/dL (8.4-10.2); CREATININE, serum 0.68 mg/dL (0.57-1.11); POTASSIUM 3.7 mmol/L (3.5-4.5)
[2022-06-14 07:13] LABS: HEMATOCRIT 33.4 % (37.0-47.0)
--- NOTE | 2022-06-14 16:52 | NUR ---
PATIENT COMPLAINING OF SEVERE L CHEST PAIN WHERE PORT WAS REMOVED. DRESSING CLEAN DRY AND INTACT. PER PACU REPORT FENTANYL AND MORPHINE DID NOTHING TO RELIEVE HER PAIN. VITALS ARE STABLE AT THIS TIME. WILL CALL
--- NOTE | 2022-06-14 17:47 | NUR ---
PATIENT STATED IV DILAUDID PROVIDED RELIEF FROM PAIN. PATIENT CURRENTLY RESTINGIN BED, IVF FLUIDS INFUSING, POST OP VITALS ONGOING. CALL LIGHT WITHIN REACH. PATIENT AWARE OF HOW TO CALL FOR TRAY IF WANTED.
[2022-06-15 03:12] VITALS: BP 102/49; PULSE 83; TEMP 98.7
[2022-06-15 08:16] VITALS: BP 120/49; PULSE 64; TEMP 97.9
[2022-06-15 09:57] LABS: HEMOGLOBIN 10.4 g/dl (12.5-16.0); MEAN CELL VOLUME 86 fl (80.0-100.0); MEAN CORPUSCULAR HEMOGLOBIN 27 pg (27-31); MEAN CORPUSCULAR HGB CONC 31 g/dl (33.0-37.0); MEAN PLATELET VOLUME 9.4 fl (7.4-10.4); PLATELET COUNT 261 K/mm3 (130-400); RED BLOOD COUNT 3.83 M/mm3 (4.10-5.30)
[2022-06-15 09:58] LABS: HEMATOCRIT 33.1 % (37.0-47.0)
[2022-06-15 10:14] LABS: CALCIUM 7.7 mg/dL (8.4-10.2); CREATININE, serum 0.69 mg/dL (0.57-1.11); POTASSIUM 3.7 mmol/L (3.5-4.5)
[2022-06-15 11:29] VITALS: BP 108/52; PULSE 75; TEMP 98.3
--- NOTE | 2022-06-15 12:28 | NUR ---
Vancomycin Follow-up Pharmacy Note Current regimen: Vancomycin 1 gm IV q8h Vancomycin trough: 9.11 Adjustments: Will increase Vancomycin to 1.5 gm IV q8h. Pharmacy will continue to closely monitor and check a trough prior to the 4th new dose on 06/16/22.
--- NOTE | 2022-06-15 14:04 | NUR ---
SW met with pt to complete intake. Pt requested I come back tomorrow.
[2022-06-15 15:30] VITALS: BP 120/58; PULSE 85; TEMP 98.3
--- NOTE | 2022-06-15 16:51 | NUR ---
PATIENT IS STILL COMPLAINING OF LEFT ARM PAIN. RECEIVING DILAUDID AND MORPHINE NEEDED. VSS. SBA TO RESTROOM. APPETITE IS MODERATE. DRINKING ADEQUATE FLUIDS. WOUND CULTURE RESULTS ARE STILL PENDING. WILL CONTINUE TO MONITOR.
[2022-06-15 19:10] VITALS: BP 126/56; PULSE 86; TEMP 97.9
[2022-06-15 23:27] VITALS: BP 131/52; PULSE 68; TEMP 97.9
[2022-06-16 03:40] VITALS: BP 131/54; PULSE 70; TEMP 98.5
[2022-06-16 07:07] LABS: BASO % 0.8 % (0.0-2.0); EOS # 0.4 K/mm3 (0.0-0.7); EOS % 7.5 % (0.0-4.0); GRAN # 2.8 K/mm3 (1.4-6.5); GRAN % 55.4 % (42.2-75.2); HEMATOCRIT 32.5 % (37.0-47.0); HEMOGLOBIN 10.1 g/dl (12.5-16.0); LYMPH # 1.3 K/mm3 (1.2-3.4); LYMPH % 25.4 % (20.0-51.0); MEAN CELL VOLUME 88 fl (80.0-100.0); MEAN CORPUSCULAR HEMOGLOBIN 27 pg (27-31); MEAN CORPUSCULAR HGB CONC 31 g/dl (33.0-37.0); MEAN PLATELET VOLUME 9.8 fl (7.4-10.4); MONO # 0.5 K/mm3 (0.1-0.6); MONO % 10.3 % (1.7-9.3); PLATELET COUNT 258 K/mm3 (130-400); REDCELL DISTRIBUTION WIDTH-CV 13.8 % (11.5-14.5)
[2022-06-16 07:14] LABS: ALBUMIN 2.5 gm/dL (3.5-5.0); C-REACTIVE PROTEIN 6.18 mg/dL (0.00-0.50); CALCIUM 8.1 mg/dL (8.4-10.2); CREATININE, serum 0.57 mg/dL (0.57-1.11); MAGNESIUM 1.8 mg/dL (1.6-2.6); PHOSPHOROUS 3.1 mg/dL (2.3-4.7)
[2022-06-16 08:10] VITALS: BP 120/88; PULSE 69; TEMP 97.7
[2022-06-16 08:27] LABS: ERYTHROCYTE SEDIMENTATION RATE 20 mm/hr (0-20)
[2022-06-16 11:40] VITALS: BP 120/77; PULSE 79; TEMP 98.8
--- NOTE | 2022-06-16 14:26 | NUR ---
Commercial Intelligence Manager met with patient to discuss discharge planning. Patient lives in [place] with her two children, ages 4 and 1. Patient advised her children are staying with family friends from her tenri[place]. Patient sees Dr. Feliz for primary care and obtains medications from [facility]. Patient does not use any DME and is independent with ADLS. Patient does not have Advance Directives and was not interested in completing one at this time. Patient is not and has no adult children. Patient's next of kin would be her mother, Maira Ruano who she reported lives a few hours away. SW presented IM form to patient who verbalized understanding and provided signature. SW placed form in chart and provided copy to patient. Discharge Plan: Home
--- NOTE | 2022-06-16 15:23 | NUR ---
PATIENT ALERT AND ORIENTED X4. IV DISCONTINUED. IV ANTIBIOTICS STOPPED. NO NEW CONCERNS. DISCHARGING TODAY.
[2022-06-16] MEDS ORDERED: ZYVOX 600MG600 MG PO (15:31)
== END 2022-06-16 15:50 | disposition home or self-care (01) ==
LOC: MEDICAL 17:49
PROVIDERS: Nurse Practitioner Family; ADMIT Internal Medicine
DX: A41.9 Sepsis, unspecified organism (principal); R07.9 Chest pain, unspecified; E83.51 Hypocalcemia; E83.42 Hypomagnesemia; E55.9 Vitamin D deficiency, unspecified; E89.0 Postprocedural hypothyroidism; G47.33 Obstructive sleep apnea (adult) (pediatric); M92.519 Juvenile osteochondrosis of proximal tibia, unspecified leg; F32.A Depression, unspecified; F41.9 Anxiety disorder, unspecified; Z79.890 Hormone replacement therapy; Z98.0 Intestinal bypass and anastomosis status; Z79.899 Other long term (current) drug therapy; Z91.198 Patient's noncompliance with other medical treatment and regimen for other reason
CPT/HCPCS: G0378; G0379; J1170; J2270; J2405; J2543; J2704; J3010; J3370; J7030; J7050; Q9967

== ENCOUNTER 2022-08-09 15:25 | Emergency (ER) | payer MEDICARE, MEDICAID ==
[~2022-08-09] VITALS: Ht 162.6 cm; Wt 147.7 kg
[~2022-08-09 15:25] MED LIST changes: +CALCIUM CITRAT200 M2 PO; +CYMBALTA 30MG30 MG PO; +IRON TABLETS325 MG PO; +MAG-OX 400400 MG/TAB PO; +VITAMIN D 50,1.25 MG PO; +ZYVOX 600MG600 MG PO
[2022-08-09 15:36] VITALS: TEMP 98.2
[2022-08-09 16:58] LABS: BASO # 0.1 K/mm3 (0.0-0.2); BASO % 1.5 % (0.0-2.0); EOS # 0.4 K/mm3 (0.0-0.7); EOS % 5.4 % (0.0-4.0); GRAN # 3.6 K/mm3 (1.4-6.5); GRAN % 47.3 % (42.2-75.2); HEMOGLOBIN 11.5 g/dl (12.5-16.0); LYMPH # 2.8 K/mm3 (1.2-3.4); LYMPH % 37.6 % (20.0-51.0); MEAN CELL VOLUME 84 fl (80.0-100.0); MEAN CORPUSCULAR HEMOGLOBIN 27 pg (27-31); MEAN CORPUSCULAR HGB CONC 32 g/dl (33.0-37.0); MEAN PLATELET VOLUME 10.2 fl (7.4-10.4); MONO # 0.6 K/mm3 (0.1-0.6); MONO % 8.1 % (1.7-9.3); PLATELET COUNT 304 K/mm3 (130-400); RED BLOOD COUNT 4.22 M/mm3 (4.10-5.30); REDCELL DISTRIBUTION WIDTH-CV 16.4 % (11.5-14.5)
[2022-08-09 16:59] LABS: HEMATOCRIT 35.6 % (37.0-47.0)
[2022-08-09 17:40] LABS: BILIRUBIN,TOTAL 0.4 mg/dL (0.2-1.2); CALCIUM 8.6 mg/dL (8.4-10.2); CREATININE, serum 1.06 mg/dL (0.57-1.11); MAGNESIUM 2.1 mg/dL (1.6-2.6); PHOSPHOROUS 3.6 mg/dL (2.3-4.7); POTASSIUM 3.6 mmol/L (3.5-4.5); TOTAL PROTEIN 7.5 gm/dL (6.2-8.1)
[2022-08-09 18:12] LABS: COLLECTION METHOD CLEAN CATCH
[2022-08-09 18:23] LABS: PH 5.5 (5.0-8.5); URINE APPEARANCE Hazy (CLEAR/HAZY); URINE BLOOD Negative (NEGATIVE); URINE COLOR Yellow (YELLOW); URINE GLUCOSE Negative (NEGATIVE); URINE KETONE TRACE (NEGATIVE); URINE NITRATE Positive (NEGATIVE); URINE PROTEIN(semi-quant) Negative (NEGATIVE); URINE UROBILINOGEN 0.2 E.U/dL (0.2-1.0)
[2022-08-09 18:29] LABS: MUCOUS Present (NOT PRESENT); URINE BACTERIA Rare /hpf (NONE SEEN); URINE RBC 0-2 /hpf (0-2)
[2022-08-09 20:13] VITALS: BP 100/60; PULSE 59
[2022-08-09] MEDS ORDERED: BACTRIM DS 8001 TAB PO (22:58)
== END 2022-08-09 20:25 | disposition home or self-care (01) ==
LOC: COL.ER 15:25
PROVIDERS: Emergency Medicine
DX: N39.0 Urinary tract infection, site not specified (principal); G89.29 Other chronic pain; R20.2 Paresthesia of skin; Z28.310 Unvaccinated for COVID-19
CPT/HCPCS: J0610; J0696

== ENCOUNTER 2022-08-21 14:41 | Inpatient (IN) | payer MEDICARE, MEDICAID ==
[~2022-08-21] VITALS: Ht 165.1 cm; Wt 151.3 kg
[~2022-08-21 14:41] MED LIST changes: +BACTRIM DS 8001 TAB PO; -CALCIUM CITRAT200 M2 PO; +CITRACAL + D CA1 TAB PO; +SYNTHROID0.125 MG/T PO
[2022-08-21] MEDS ORDERED: VITAMIN B12 1541 TAB PO (15:58)
[2022-08-21] MEDS ORDERED: TYLENOL 500MG500 MG PO (15:59)
[2022-08-21] MEDS ORDERED: CORTEF 20MG TAB20 MG PO (16:00)
[2022-08-21] MEDS ORDERED: NEURONTIN400 MG/CAP PO (16:00)
[2022-08-21] MEDS ORDERED: DULCOLAX STOOL100 MG PO (16:00)
[2022-08-21] MEDS ORDERED: CYTOMEL 2525 MCG/TAB PO (16:01)
[2022-08-21] MEDS ORDERED: ULTRAM 50MG TAB50 MG PO (16:01)
[2022-08-21] MEDS ORDERED: QUALITY CHOICE1 TA7 (16:04)
[2022-08-21] MEDS ORDERED: [UNRECOGNIZED DRUG - OTHER] IV (16:05)
[2022-08-21] MEDS ORDERED: JUNEL FE 1/20 21 TAB PO (16:17)
[2022-08-21 16:35] VITALS: BP 126/71; PULSE 70; TEMP 98.1
[2022-08-21 17:56] VITALS: BP 126/71; PULSE 70; TEMP 98.1
--- NOTE | 2022-08-21 18:20 | NUR ---
PATIENT TRANSFERRED FROM . PATIENT ORIENTED TO ROOM AND FACILITY POLICIES. PATIENT ASSESSED (SEE CHART). PATIENT ARRIVED WITH IV TO RIGHT FA. PUREWICK APPLIED. PATIENT REPORTS INCONTINENCE. PATIENT IN ROOM WORKING WITH THERAPY. WILL ORDER DINNER.
--- NOTE | 2022-08-21 19:00 | NUR ---
PTRESTING IN BED. RELATES PAIN LEVEL 7 RT HIP, RT LUMBAR, RT PELVIC AREA. PT RESTING IN COMFORTABLE POSITION. CALM. WILL REASSESS AT A LATER TIME. CALL LIGHT IN REACH. BED ALARM SET.
--- NOTE | 2022-08-21 20:27 | NUR ---
PT REPORTED SHE IS SUPPOSE TO HAVE [facility] VIDEO VISIT AT [address] BOCANEGRA WHICH INTERFERS WITH PHYSICAL THERAPY SCHEDULE.
--- NOTE | 2022-08-21 21:02 | NUR ---
INT NEEDLE TO LT FA INFILTRATED. TAKEN OUT. WILL RESTART IN AM.
[2022-08-22 05:54] VITALS: BP 119/70; PULSE 64; TEMP 97.7
[2022-08-22 06:45] LABS: BASO # 0.1 K/mm3 (0.0-0.2); BASO % 0.7 % (0.0-2.0); EOS # 0.3 K/mm3 (0.0-0.7); EOS % 4.8 % (0.0-4.0); GRAN # 3.5 K/mm3 (1.4-6.5); GRAN % 52.1 % (42.2-75.2); HEMOGLOBIN 10.5 g/dl (12.5-16.0); LYMPH # 2.4 K/mm3 (1.2-3.4); LYMPH % 36.3 % (20.0-51.0); MEAN CELL VOLUME 86 fl (80.0-100.0); MEAN CORPUSCULAR HEMOGLOBIN 28 pg (27-31); MEAN CORPUSCULAR HGB CONC 32 g/dl (33.0-37.0); MEAN PLATELET VOLUME 9.9 fl (7.4-10.4); MONO # 0.4 K/mm3 (0.1-0.6); PLATELET COUNT 241 K/mm3 (130-400); RED BLOOD COUNT 3.81 M/mm3 (4.10-5.30); REDCELL DISTRIBUTION WIDTH-CV 18.5 % (11.5-14.5)
[2022-08-22 06:48] LABS: HEMATOCRIT 32.6 % (37.0-47.0)
[2022-08-22 06:58] LABS: ALBUMIN 3.5 gm/dL (3.5-5.0); BILIRUBIN,TOTAL 0.4 mg/dL (0.2-1.2); CALCIUM 8.3 mg/dL (8.4-10.2); CREATININE, serum 0.85 mg/dL (0.57-1.11); POTASSIUM 4.1 mmol/L (3.5-4.5); TOTAL PROTEIN 6.5 gm/dL (6.2-8.1)
--- NOTE | 2022-08-22 07:06 | NUR ---
Shift report received from shift manager RN. Pt awake and resting supine in bed. She rates her pain level at 7/10 but states she received pain medication this morning. Pt denies other needs. Call light is in her reach. Bed alarm is on.
[2022-08-22 07:20] LABS: THYROID STIMULATING HORMONE 2.41 uIU/mL (0.350-4.940)
--- NOTE | 2022-08-22 09:35 | NUR ---
Pt is off the unit for PT.
--- NOTE | 2022-08-22 10:13 | NUR ---
Pt is back in bed after PT. She is reporting increased rt. hip pain - rates at 8/10. ES Tylenol given per PRN order. Dr. Del Valle notified of increased pain. See emar for changes.
--- NOTE | 2022-08-22 11:37 | NUR ---
CHRIS met with the patient to introduce oneself and to complete intake. She lives in [place] with her two children. They are 1 and 4 years-old. She provides that her children are staying with family friends from [place] while she is here. She reports independence with ADLs prior to hospitalization and does not have any DME. The patient's PCP is Dr. Nieves Feliz and she obtains her medications from [facility]. The patient does not have a DPOA-HC and she was not interested in completing one at this time. The patient states that she is not and her children are under the age of 18. She states that her parents are alive, but she really only has somewhat of a relationship with her mother. She provides that she has three sisters. CHRIS informed her how her parents would be her legal next of kin. The patient verbalized understanding. She has her friends: Lisa Rivera (ph#[phone]) and Yesenia Ramachandran (ph#[phone]) as her people to contact. The patient had no questions or concerns for CHRIS at this time.
--- NOTE | 2022-08-22 14:34 | NUR ---
Patient given prn Ultram for 10/10 dull/achy pain in right hip. Patient repositioned off of right hip. Linens changes and dillan care performed after incontinent episode. Patient currently resting in bed. Denies any further needs at this time. Call light in reach. Fall percautions in place.
--- NOTE | 2022-08-22 15:11 | NUR ---
Patient relayed to this RN that Dr. Atkins, web press operator, requested that an MRI be done on pituitary gland. Message relayed to Dr. Del Valle.
--- NOTE | 2022-08-22 18:30 | NUR ---
Patient has had a rough afternoon. PRN pain medication given frequently for what patient describes as severe pain in right hip. James contacted about pain management. This RN was instructed to ensure that pain medication was being given q6hr and to repeat the dose according to the existing order. If pain was still out of controll, nursing staff to contact provider for further instructions. Information relayed to oncoming nurse. Patient is currently resting in bed. Denies any further needs at this time. Call light in reach. Fall percautions in place. Friend at the bedside.
--- NOTE | 2022-08-22 20:51 | NUR ---
Pt shift assessment completed. A&Ox4. Pt is reporting that her pain level is at 7/10. RAC is CDI. Fluids stopped and currently trying to contact Dr Ferro to report of Ca results. No answer at this time. Will continue trying to contact Dr Ferro. Provider notified of pain level of pt, and new orders received. Belongings and call light are within reach.
--- NOTE | 2022-08-22 21:36 | NUR ---
Dr Ferro called back this WILDLIFE CONSERVATION PROFESSOR and he was notified of Calcium levels. No further instructions were given at this time.
[2022-08-23 05:54] VITALS: BP 116/73; PULSE 64; TEMP 97.5
--- NOTE | 2022-08-23 07:04 | NUR ---
Shift report received from retail shift leader LAYDOWN MACHINE OPERATOR. Pt awake and sitting up in bed. She reports continued RLE/hip pain that is "getting under control". Pt ordering breakfast. Denies other needs. Call light is in her reach. Bed alarm is on.
--- NOTE | 2022-08-23 09:46 | NUR ---
Pt off unit for Group Therapy. OT called to report pt rating RLE/hip pain at 10/10. Too early for PRN pain medications except for Tylenol. Spoke w/ hospitalist to report pt's high pain level - see eMAR for changes. Tramadol given per PRN order.
--- NOTE | 2022-08-23 11:15 | NUR ---
Pt is back in bed after returning from PT/OT. Pt is tearful about her current illness(es) and is wondering if she was discharged from [facility] "too soon". Pt has expressed interest in surgical interventions for her right hip pain. Pain rated as 10/10. Dilaudid given per PRN order. K-pad given for right hip pain. Pt feels "embarrassed" about urine incontinence and would like a ly inserted. Shelli on for now. Will discuss ly insertion w/ Hospitalist.
--- NOTE | 2022-08-23 15:39 | NUR ---
Pt awake and resting in bed in left side lying position while talking on her cell phone. Pt reporting right hip pain "went down to a 6, but it's starting to creep back up to a 7". Pt requesting pain medication. Tramadol given per PRN order. Pt denies other needs. Call light is in her reach. Bed alarm is on.
--- NOTE | 2022-08-23 16:06 | NUR ---
Pt continuing to report RLE pain. Tramadol given per PRN order approx 20 minutes ago. Discussed w/ pt trying an ice pack to right hip. Pt agreeable and ice pack was given. Will continue to monitor.
--- NOTE | 2022-08-23 16:33 | NUR ---
Pt resting in bed on left side. Pt reporting right hip pain at 9/10 but appears comfortable. Pt requesting pain medication. Dilaudid given per PRN order. Pt states that alternating heat application and cold packs today have provided "a little bit" of pain relief. Pt declining dinner stating that she isn't very hungry. Pt denies other needs. Call light is in her reach. Bed alarm is on.
--- NOTE | 2022-08-23 17:52 | NUR ---
Pt sitting up in bed talking on her phone. She reports her pain is "okay" at this time. Ice pack replaced to Rt. hip. Pt denies other needs at this time. Call light is in her reach. Bed alarm is on.
[2022-08-23 18:00] VITALS: BP 148/71; PULSE 88; TEMP 98.2
--- NOTE | 2022-08-23 18:16 | NUR ---
Pt calling to request pain medication. Pt rating Rt hip pain at 8/10. Will administer pain medication when dose is next due.
--- NOTE | 2022-08-23 19:52 | NUR ---
pt resting in bed. meds given and assessment complete. rates right hip pain a 01/25, tramadol given per emar. ice pack to hip for comfort. INT to right hand. fall precautions in place. no other needs at this time. call light within reach.
--- NOTE | 2022-08-23 20:56 | NUR ---
pt resting in bed, on phone with daughter. meds given and assessment complete. pt wanting to eat regular food and states she "finally has an appetite". denies nausea. bowel sounds are active, passing gas. no bowel movement yet. vss. denies pain. fluids infusing in left wrist. pt denies needs at this time. call light within reach.
[2022-08-24 04:57] VITALS: BP 116/74; PULSE 69; TEMP 97.9
--- NOTE | 2022-08-24 07:12 | NUR ---
Shift report received from manufacturing shift supervisor RN. Pt reporting pain level at 8/10. Dilaudid given per PRN order approx 30 minutes ago. Pt also reporting concerns about skin breakdown. Will assess. Call light is in pt's reach. Denies other needs.
--- NOTE | 2022-08-24 08:07 | NUR ---
Pt incontinent of urine. Purewick is on but leaked or malfunctioned. Hygiene performed. Pt's skin is intact. One area of redness/irritation approx pea sized noted to skin fold on back of left thigh. Skin barrier cream applied to buttocks, dillan-area, back of thighs. Pt requesting additional pain medication. Tramadol given per PRN order. Pt sitting up in bed to eat breakfast. Denies other needs. Call light is in her reach. Bed alarm is on.
--- NOTE | 2022-08-24 11:42 | NUR ---
Soaping Department Supervisor rounds: Soaping Department Supervisor visit offered; Patient declined. Patient was watching her own muslim online. Patient asked to have door closed. Soaping Department Supervisor notified nurses at nurses' station of closed door since room is marked "fall risk."
--- NOTE | 2022-08-24 12:46 | NUR ---
Pt sitting up in bed to eat lunch. Pt is tearful as her children were here for a visit. Pt reporting Rt. hip pain at 9/10 and is requesting pain medication. Dilaudid given approx 1 hr ago per PRN order. Tramadol given at this time per PRN order. Pt denies other needs. Call light is in her reach. Bed alarm is on.
--- NOTE | 2022-08-24 14:19 | NUR ---
Late entry: Pt was approx 30 minutes ago and requesting pain medication. Pt rated hip pain at 9/10. Dilaudid given per PRN order. Pt positioned to left side lying and given ice pain. Pt resting at this time. Reports pain is "down to a 7". Will continue to monitor. Call light is in her reach. Bed alarm is on.
[2022-08-24 17:28] VITALS: BP 109/68; PULSE 71; TEMP 98.4
--- NOTE | 2022-08-24 17:39 | NUR ---
Pt requesting pain medication and is rating Rt. hip pain at 9/10. Tramadol given per PRN order. Ice pack replaced. Pt sitting up eating her dinner. Denies other needs. Call light is in her reach. Bed alarm is on.
--- NOTE | 2022-08-24 19:30 | NUR ---
RECEIVED CHANGE OF SHIFT REPORT FROM DAY SHIFT RN.
--- NOTE | 2022-08-24 19:50 | NUR ---
PURE WICK CHANGED OUT DUE TO INCONTINENT STOOL
--- NOTE | 2022-08-24 20:15 | NUR ---
OBSERVED PATIENT RESTING IN BED WITH NO FACIAL GRIMACING, GUARDING POSTURING WHILE AT REST, RESPIRATIONS EVEN AND NONLABORED. OBSERVED WITH REPOSITIONING FROM SIDE TO SIDE, PATIENT VERBALIZING DISCOMFORT WITH MOVEMENT OF RLE AND LAYING ONTO RLE DURING PERICARE WHEN LAYING ON RIGHT SIDE AND CHANGING CHUX PAD AND PERICARE PERFORMED.
[2022-08-25 05:03] VITALS: BP 117/66; PULSE 74; TEMP 98.4
--- NOTE | 2022-08-25 09:41 | NUR ---
Has lack of transportation kept you from medical appts, meetings, work, or from getting things needed for daily living? NO How often do you feel lonely or isolated from those around you? NEVER Over the past 5 days, how much of the time has pain made it hard for you to sleep? CONSTANTLY Over the past 5 days, how often have you limited your participation in therapy due to pain? FREQUENTLY Over the past 5 days, how often have you limited your day-to-day activities because of pain? FREQUENTLY Have you had 2 or more falls in the past year or any fall with an injury? NO Did you have major surgery during the 100 days prior to admission? YES
--- NOTE | 2022-08-25 11:05 | NUR ---
PATIENT STATED IF SHE NEEDS A CENTRAL LINE FOR HER INFUSIONS SHE WOULD LIKE TO HAVE A PORT PLACED INSTEAD. PER PT, PHIL WAS ONTHE PHONE EARLIER WITH A NURSE FOR DR HERRERA TRYING TO HAVE THEM PLACE A PORT. WILL PASS ON TO PA INFECTION PREVENTION SPECIALIST.
--- NOTE | 2022-08-25 11:22 | NUR ---
CHRIS met with the patient to follow up after the weekend. The patient states that she is doing okay. She was able to see her children this weekend. The patient is on medical hold today from therapy. She provides that the clinical team is trying to get some answers first. She had no concerns for CHRIS at this time.
--- NOTE | 2022-08-25 13:35 | NUR ---
PATIENT TAKEN VIA WHEELCHAIR TO MRI. LINEN CHANGED AND ROOMED CLEANED UP BY RN.
--- NOTE | 2022-08-25 13:37 | NUR ---
Admission QIM scores were reviewed by the team. Code of 88 chosen for oral hygiene was determined by team discussion to be the most usual performance before interventions for this patient during the assessment period. Code of 3 chosen for toilet hygiene was determined by team discussion to be the most usual performance before interventions for this patient during the assessment period. Code of 3 chosen for shower/bathe self was determined by team discussion to be the most usual performance before interventions for this patient during the assessment period. Code of 2 chosen for lower body dressing was determined by team discussion to be the most usual performance before interventions for this patient during the assessment period. Code of 1 chosen for putting on/taking off footwear was determined by team discussion to be the most usual performance before interventions for this patient during the assessment period. Code of 1 chosen for rolling left to right was determined by team discussion to be the most usual performance before interventions for this patient during the assessment period. Code of 3 chosen for sit to lying was determined by team discussion to be the most usual performance before interventions for this patient during the assessment period. Code of 88 chosen for walk 10 feet was determined by team discussion to be the most usual performance for this patient during the discharge assessment period.--PD Ace
--- NOTE | 2022-08-25 15:15 | NUR ---
PATIENT BACK FROM MRI IN STBALE CONDITION. PATIENT REPOSITIONED IN BED.PAIN MEDICATION GIVEN, ICE TO R HIP. PER FORM SETTER SUPERVISOR THEY WERE ONLY ABLE TO DO AN MRI HIP WITHOUT CONTRAST D/T ALLERGIES.
[2022-08-25 17:05] VITALS: BP 121/72; PULSE 71; TEMP 97.7
--- NOTE | 2022-08-25 19:01 | NUR ---
RECEIVED CHANGE OF SHIFT REPORT FROM DAY SHIFT RN.
--- NOTE | 2022-08-25 20:09 | NUR ---
PATIENT TO ROOM FROM ED REGISTRATION PER W/C TRANSPORTED BY STAFF. DENIES CHEST PAIN/SOA BUT HAS PRODUCTIVE COUGH CLEAR VARIES. IS A ACTIVE SMOKER.
--- NOTE | 2022-08-25 22:08 | NUR ---
Per DO, paged architecture consultant provider for Dr Ferro, Dr Carney, to call results of call.
--- NOTE | 2022-08-25 22:10 | NUR ---
Dr Carney called back, informed of recent calcium level results.
[2022-08-26 04:38] VITALS: BP 118/67; PULSE 77; TEMP 98.1
--- NOTE | 2022-08-26 07:23 | NUR ---
CHANGE OF REPORT GIVEN TO DAY SHIFT RNKILEY.
--- NOTE | 2022-08-26 08:58 | NUR ---
PATIENT ALERT AND ORIENTED X4. VSS. PATIENT HERE FOR LUMBAR PAIN R/T MULTIPLE COMORBITITIES. PATIENT REPORTS PAIN 9/10, REQUESTS PAIN MEDICATION. IV TO RIGHT HAND, INT FLUSHES WELL. PUREWICK IN PLACE. PATIENT REPORTS NAUSEA, REQUESTS ZOFRAN. PATIENT TO EAT BREAKFAST AND ATTEMPT TO WORK WITH THERAPY THIS AM. CALL LIGHT IN REACH.
[2022-08-26 17:18] VITALS: BP 114/68; PULSE 95; TEMP 98
--- NOTE | 2022-08-26 19:00 | NUR ---
RECEIVED CHANGE OF SHIFT REPORT FROM DAY SHIFT RN.
[2022-08-27 04:35] VITALS: BP 126/70; PULSE 85; TEMP 98.5
--- NOTE | 2022-08-27 06:53 | NUR ---
CHANGE OF SHIFT REPORT GIVEN TO DAY SHIFT RNKILEY.
[2022-08-27 07:28] LABS: ALBUMIN 3.3 gm/dL (3.5-5.0); BILIRUBIN,TOTAL 0.3 mg/dL (0.2-1.2); CALCIUM 8.2 mg/dL (8.4-10.2); CREATININE, serum 0.78 mg/dL (0.57-1.11); PHOSPHOROUS 4.1 mg/dL (2.3-4.7); POTASSIUM 3.9 mmol/L (3.5-4.5); TOTAL PROTEIN 6.6 gm/dL (6.2-8.1)
[2022-08-27 07:32] LABS: TSH w REFLEX 0.436 uIU/mL (0.350-4.940)
--- NOTE | 2022-08-27 09:26 | NUR ---
PATIENT ALERT AND ORIENTED X4. VSS. PATIENT REPORTS PAIN 10/10, REQUESTS PAIN MEDICATION. PUREWICK IN PLACE. IV TO RIGHT FA INT, FLUSHES WELL. EXCORIATION TO LEFT LABIA, POSSIBLY FROM PUREWICK. PATIENT EATING BREAKFAST, WAITING TO WORK WITH THERAPY.
--- NOTE | 2022-08-27 15:01 | NUR ---
SW met with the patient to present and review the IPR Team Conference Note. The team plans to re-evaluate the patient next Thursday. There is no discharge date at this time. The patient is in agreement to the plan and had no concerns for SW at this time.
[2022-08-27 18:13] VITALS: BP 143/71; PULSE 80; TEMP 97.6
--- NOTE | 2022-08-28 02:46 | NUR ---
PATIENT ASSESSMENT COMPLETED AT 2003 RESTING IN BED ALERT AND ORIENTED WITH CALCIUM INFUSION RUNNING(LAB DRAWN FOR LEVEL AT 2019) RESULT PAGED TO WITH IT BEING CA 8.7. PATIENT UTILIZED PRN PAIN MEDICATION THROUGHOUT SHIFT FOR RT HIP PAIN. WHEN CHECKED UPON PATIENT APPEARS TO BE SLEEPING WITH UNLABORED NORMAL RESPIRATIONS.
[2022-08-28 05:42] VITALS: BP 126/74; PULSE 89; TEMP 98.6
--- NOTE | 2022-08-28 07:02 | NUR ---
Shift report received from second shift supervisor RN.
--- NOTE | 2022-08-28 08:47 | NUR ---
Pt resting supine in bed. She has just finished eating breakfast independently. Pt reporting pain level is consistently at 7-10 in Rt. hip/pelvis. Pt stating she was seen by Neuro yesteray and the plan is probable surgery. PRN Dilaudid was given approx 1 hr ago.
--- NOTE | 2022-08-28 11:48 | NUR ---
Pt is back in her room after returning from MRI. Pt reporting pain level in 9/10 in Rt. hip. Diluadid & Tramadaol given per PRN order and pt's request. Pt resting supine, pillow placed beneath Rt hip, and ice pack placed on Rt hip. Rasheed cath patent to drainage bag w/ clear, yellow return. Pt denies other needs. Call light is in her reach. Bed alarm is on.
[2022-08-28 11:51] VITALS: BP 138/60; PULSE 100; TEMP 102.7
--- NOTE | 2022-08-28 14:19 | NUR ---
IV site R. Forearm swollen and slightly red. Pt denies pain or discomfort. [facility] contacted for new IV placement. Awaiting return call.
--- NOTE | 2022-08-28 15:03 | NUR ---
[facility] is already gone for the day. 20G placed into Rt ac site by ETHAN Calixto, Radio Disc Jockey.
--- NOTE | 2022-08-28 16:30 | NUR ---
Pt resting supine in bed. Pillow x 1 beneath right hip. Pt reporting right hip pain at 9/10 and requesting pain medication. Dilaudid given per PRN order along with ice pack. Pt denies other needs. Call light is in her reach. Bed alarm is on.
[2022-08-28 18:12] VITALS: BP 100/51; PULSE 76; TEMP 97.9
--- NOTE | 2022-08-28 18:20 | NUR ---
Pt requesting pain medication. Pt rating right hip pain at 9/10 but reports that she has more feeling in her right leg. Diluadid given per PRN order. Denies other needs. Call light is in her reach. Bed alarm is on.
--- NOTE | 2022-08-28 21:00 | NUR ---
PT RESTING IN BED. SEE MAR FOR PAIN MED GIVEN IV FOR LEVEL 9/10 RT HIP/LEG PAIN. PT RELATES RLE NUMB AND TINGLY. ICE PACK TO RT HIP. CALL LIGHT IN REACH. BED ALARM SET.
[2022-08-29 05:55] VITALS: BP 95/60; PULSE 80; TEMP 97.6
--- NOTE | 2022-08-29 07:07 | NUR ---
Shift report received from scene shifter RN. Pt is awake and lying supine in bed. Rasheed cath patent to drainage w/ clear, yellow urine. Bed linens are dry. Pt last received pain medication approx 1.5 hrs ago. Call light is in her reach. Bed alarm is on.
[2022-08-29 07:56] LABS: BASO % 0.4 % (0.0-2.0); EOS # 0.3 K/mm3 (0.0-0.7); EOS % 3.6 % (0.0-4.0); GRAN # 4.9 K/mm3 (1.4-6.5); GRAN % 60.5 % (42.2-75.2); HEMOGLOBIN 10.3 g/dl (12.5-16.0); LYMPH # 2.1 K/mm3 (1.2-3.4); MEAN CELL VOLUME 89 fl (80.0-100.0); MEAN CORPUSCULAR HEMOGLOBIN 28 pg (27-31); MEAN CORPUSCULAR HGB CONC 31 g/dl (33.0-37.0); MEAN PLATELET VOLUME 9.5 fl (7.4-10.4); MONO # 0.7 K/mm3 (0.1-0.6); PLATELET COUNT 232 K/mm3 (130-400); REDCELL DISTRIBUTION WIDTH-CV 19.8 % (11.5-14.5)
[2022-08-29 08:12] LABS: CALCIUM 7.9 mg/dL (8.4-10.2); CREATININE, serum 0.71 mg/dL (0.57-1.11); POTASSIUM 3.9 mmol/L (3.5-4.5)
--- NOTE | 2022-08-29 09:49 | NUR ---
Pt returned to room approx 20 minutes ago from working with PT. Pt is reporting RLE/hip pain at 10/10 and requesting Dilaudid and Tramadol. Both given per PRN order. Initial doses of Protonix and Indomethacin given. Lexicomp handouts given to patient about her new medications. OT in room to shower with pt at this time.
[2022-08-29 13:53] LABS: .COPPER,S 116 mcg/dL (77-206)
--- NOTE | 2022-08-29 14:28 | NUR ---
STEFANIEE PICC placed by AICLIFF. Pt off unit for brain MRI
[2022-08-29 17:53] VITALS: BP 119/66; PULSE 84; TEMP 97.9
--- NOTE | 2022-08-29 21:00 | NUR ---
PT RESTING IN BED. DEPRESSED AND JUST DOESNT FEEL GOOD. SEE MAR FOR PAIN MED GIVEN. PAIN LEVEL 8/10 RT HIP/LEG. POOR SENSATION TO RLE. SKIN WARM AND PINK. PPP. ICE PACK AND PILLOW UNDER RT HIP FOR PAIN RELIEF. UNABLE TO CONTACT DR BOCANEGRA CARE MANAGEMENT ASSOCIATE IN [place] TO REPORT CALCIUM LEVEL AFTER INFUSION. CALL LIGHT IN REACH. BED ALARM SET.
[2022-08-30 04:53] VITALS: BP 129/70; PULSE 78; TEMP 98.7
--- NOTE | 2022-08-30 07:08 | NUR ---
Shift report received from security shift manager RN. Pt incontinent of stool. C/o rectal soreness this morning. Hygiene performed. Desitin applied as ordered. Pt reporting R Hip pain at 01/25. No abd. pain. Will administer pain medication per PRN order.
--- NOTE | 2022-08-30 08:36 | NUR ---
Called [facility] to page Dr. Ferro re: calcium level from last night. Page sent to inform him of calcium level of 8.6. IPR nurse callback number provided if he has any questions/further instructions.
--- NOTE | 2022-08-30 09:56 | NUR ---
Pt is off the unit for Group Therapy.
[2022-08-30 17:21] VITALS: BP 102/52; PULSE 72; TEMP 98.2
--- NOTE | 2022-08-30 17:50 | NUR ---
Pt reporting itching to her inner RUE around the tegaderm that is securing the PICC line. No rash present. Redness present where pt has been scratching. Hospitalist notified. Awaiting new orders. See emar for changes.
--- NOTE | 2022-08-30 21:00 | NUR ---
PT RESTING IN BED. ALITTLE DEPRESSED. C/O RT HIP/LEG PAIN. SEE MAR FOR DILAUDID IV GIVEN. PT HAD INCONTINENT MED LOOSE YELLOWISH STOOL. CLEANED UP. PT YELLS OUT WHEN CLEANING UP RECTAL AREA AND INSERTING ANNUSOL SUPPOSITORY. BUTT PASTE CREAM APPLIED. ICE PACK TO RT HIP FOR PAIN. PT REPORTS NUMBNESS TO RT LEG. PPP. SKIN WARM TO TOUCH. CALL LIGHT IN REACH. BED ALARM SET.
[2022-08-31 05:37] VITALS: BP 112/66; PULSE 79; TEMP 98.6
--- NOTE | 2022-08-31 09:58 | NUR ---
PATIENT CHANGED, CAREY CAND CATHETER CARE PROVIDED. PATIENT HAD A LOOSE BOWL MOVEMENT. PATIENT REPOSITIONED AND NOW RESTING COMFORTABLY IN BED. CALL LIGHT WITHIN REACH
--- NOTE | 2022-08-31 13:00 | NUR ---
PATIENT AWAKE AND ALERT, RESTING IN BED. FAMILY AT BEDSIDE, CALL LIGHT WITHIN REACH.
--- NOTE | 2022-08-31 17:00 | NUR ---
PATIENT HAD INONTINENT EPISODE OF BOWEL. PATIENT CLEANED, CAREY AND CAHETER CARE PROVIDED. JESUS REAAPLIED TO SACRUM. PATIENT REPOSITIONED. PATIENT DENIES ANY FURTHER NEEDS OR COMPLAINTS AT THIS TIME. CALL LIGHT WITHIN REACH.
[2022-08-31 17:11] VITALS: BP 115/72; PULSE 81; TEMP 98.1
--- NOTE | 2022-08-31 17:56 | NUR ---
PATIENT AWAKE AND ALERT, RESTING IN BED. PATIENT DENIES ANY NEEDS AT THIS TIME. FREITAS PATENT, PICC LINE INTACT AND RE-WRAPPED WITH FAWAD BY RN. PATIENTS CALL LIGHT WITHIN REACH.
--- NOTE | 2022-08-31 22:46 | NUR ---
PT. C/O PAIN 10/ IN HER R) HIP, I LET HER KNOW I WAS GOING TO GIVE HER PAIN MEDICINE FIRST BEFORE GIVING HER OTHER MEDICATION, PT. STATED SHE NEEDED CLEANED UP, PT. HAD A BM, JEREMY, THE TECH ASSISTED ME IN CLEANING HER UP, PT. IS ABLE TO ASSIST IN PULLING HERSELF FROM ONE SIDE TO THE OTHER, BUT STATED IT HURT TO LAY ON HER RIGHT SIDE, SO IT WAS EASIER TO HAVE TWO PEOPLE HELPING SINCE IT TAKES LESS TIME THAT WAY, PT. STATES NO OTHER NEEDS AT THIS TIME, WILL CONTINUE TO MONITOR.
[2022-09-01 05:09] VITALS: BP 106/65; PULSE 107; TEMP 98
[2022-09-01 05:56] LABS: BASO % 0.5 % (0.0-2.0); EOS # 0.1 K/mm3 (0.0-0.7); EOS % 1.5 % (0.0-4.0); GRAN # 4.8 K/mm3 (1.4-6.5); GRAN % 57.1 % (42.2-75.2); HEMOGLOBIN 10.5 g/dl (12.5-16.0); LYMPH # 2.6 K/mm3 (1.2-3.4); LYMPH % 30.3 % (20.0-51.0); MEAN CELL VOLUME 87 fl (80.0-100.0); MEAN CORPUSCULAR HEMOGLOBIN 28 pg (27-31); MEAN CORPUSCULAR HGB CONC 32 g/dl (33.0-37.0); MONO # 0.9 K/mm3 (0.1-0.6); MONO % 10.2 % (1.7-9.3); PLATELET COUNT 215 K/mm3 (130-400); RED BLOOD COUNT 3.75 M/mm3 (4.10-5.30); REDCELL DISTRIBUTION WIDTH-CV 19.5 % (11.5-14.5)
[2022-09-01 06:06] LABS: HEMATOCRIT 32.5 % (37.0-47.0)
[2022-09-01 06:18] LABS: CALCIUM 8.2 mg/dL (8.4-10.2); CREATININE, serum 0.66 mg/dL (0.57-1.11); MAGNESIUM 1.8 mg/dL (1.6-2.6); POTASSIUM 3.8 mmol/L (3.5-4.5)
--- NOTE | 2022-09-01 08:15 | NUR ---
pt resting in bed. meds given and assessment complete. pt rates right hip pain an 8/10 after pain medication. pt incontinent of stool, hygiene provided. pt wincing in a lot of pain in rectal area. PICC to FELISA w good flushing and blood return. ly to dd w pale yellow output. pt refused breakfast this morning due to decreased appetite.
--- NOTE | 2022-09-01 08:28 | NUR ---
brandon chinchilla PT in working w patient.
--- NOTE | 2022-09-01 09:05 | NUR ---
pt down to radiology for bone scan injection
--- NOTE | 2022-09-01 10:13 | NUR ---
OT in helping pt to shower, reports pt feeling like she is going to pass out. BS 115, BP 118/92. pt very anxious and reports having increased pain in rectum and right hip. dilauded given approx 30 minutes ago.
[2022-09-01 18:03] VITALS: BP 119/65; PULSE 104; TEMP 97.4
[2022-09-01 21:14] LABS: PARTIAL THROMBOPLASTIN TIME 119.8 SECONDS (26.0-37.0)
[2022-09-02] VITALS (10 sets, daily range): BP systolic 87–125; BP diastolic 49–72; PULSE 52–103; TEMP 97–99.3
--- NOTE | 2022-09-02 01:37 | NUR ---
PT HEPARIN XA DRAWN AT 2019, HEPARIN GTT 23 ML/HR STARTED AT THAT SAME TIME. LAB CAME BACK PTT 199 Xa 0.90, GTT STOPPED FOR 1 HR THEN RESTARTED AT RATE OF 21 ML/HR PER HEPRAIN PROTOCOL.
--- NOTE | 2022-09-02 03:04 | NUR ---
HEPARIN GTT PUT ON STANDBY @[address] PEREZ NOTE FOR SCOPE TOMORROW
--- NOTE | 2022-09-02 06:06 | NUR ---
EMPTIED PT FOLY AT 0100 OVER 3000 IN OUTPUT THAT WAS FOUL SMELLING AND CLOUDY EMPTIED PT FOLY AT 0600 1400 IN OUTPUT CLOUDY, FOUL SMELLING AND SEDIMENT NOTED.
--- NOTE | 2022-09-02 06:56 | NUR ---
Shift report received from maintenance technician 3rd shift RN.
--- NOTE | 2022-09-02 11:06 | NUR ---
Pt left the unit at approx 10:15 for sigmoidoscopy
--- NOTE | 2022-09-02 11:23 | NUR ---
Pt back in room from endoscopy. She is a/o x 4. Denies nausea. Reports continued R hip/pelvis pain. Will continue to monitor VS. Call light is in her reach. Bed alarm is on.
[2022-09-02 11:57] LABS: COLLECTION METHOD IN
[2022-09-02 12:08] LABS: PH 7.5 (5.0-8.5); URINE APPEARANCE Clear (CLEAR/HAZY); URINE BLOOD TRACE-INTACT (NEGATIVE); URINE COLOR Yellow (YELLOW); URINE GLUCOSE Negative (NEGATIVE); URINE KETONE Negative (NEGATIVE); URINE NITRATE Negative (NEGATIVE); URINE PROTEIN(semi-quant) Negative (NEGATIVE); URINE UROBILINOGEN 0.2 E.U/dL (0.2-1.0)
[2022-09-02 12:10] LABS: MUCOUS Present (NOT PRESENT); SQUAMOUS EPITHELIAL 0-2 /hpf (0-10); URINE BACTERIA Rare /hpf (NONE SEEN); URINE RBC 0-2 /hpf (0-2)
--- NOTE | 2022-09-02 12:41 | NUR ---
Pt resting in left side lying position. She is alert and oriented. She continues to report right hip/pelvis pain. Denies abd. pain or nausea. She does not plan to eat lunch but will consider ordering lunch at some point. Rasheed cath remains patent to drainage with cloudy yellow urine. Pt denies other needs. Call light is in her reach. Bed alarm is on. Will continue to monitor.
[2022-09-02 13:08] LABS: VITAMIN B1 127 nmol/L (70-180)
--- NOTE | 2022-09-02 15:04 | NUR ---
Pt reported that she has had 3 days right facial/ear numbness and RLE numbness. No vision or speech changes. No headaches. Dr. Del Valle aware. Brain MRI last week normal. Will continue to monitor.
--- NOTE | 2022-09-02 16:43 | NUR ---
Patient possible transfer to a higher level of care. No check in completed.
[2022-09-03 00:37] VITALS: BP 102/63; PULSE 91; TEMP 99.3
--- NOTE | 2022-09-03 01:32 | NUR ---
ASSESSED PATIENT AT 1999 PT IN PAIN GIVEN PAIN MEDICATIONS AT THIS TIME ALONG WITH MEDS AND ENAMA. PT RESTED UNTIL 2200 WHEN ANOTHER DOSE OF PAIN MEDICATION WAS GIVEN. THEN PT WAS ASLEEP WITH UNLABORED BREATHING ANF CHEST RISE. AT 0030 WHEN HEP Xa DRAW PT FOUN TO BE SLIGHTLY DIAPHORETIC, PTS VITALS TAKEN AT THIS TIME ONLY ABNORMAL WAS TEMP 99.3. COOLED ROOM AND GAVE WASH CLOTH.
[2022-09-03 05:22] VITALS: BP 114/57; PULSE 81; TEMP 98.7
--- NOTE | 2022-09-03 07:02 | NUR ---
Shift report received from coloring room man RN.
[2022-09-03 07:59] LABS: MEAN CELL VOLUME 85 fl (80.0-100.0); MEAN CORPUSCULAR HGB CONC 33 g/dl (33.0-37.0); MEAN PLATELET VOLUME 9.5 fl (7.4-10.4); PLATELET COUNT 227 K/mm3 (130-400); REDCELL DISTRIBUTION WIDTH-CV 19.6 % (11.5-14.5)
[2022-09-03 08:09] LABS: HEMATOCRIT 29.8 % (37.0-47.0); HEMOGLOBIN 9.8 g/dl (12.5-16.0); MEAN CORPUSCULAR HEMOGLOBIN 28 pg (27-31)
--- NOTE | 2022-09-03 08:36 | NUR ---
Pt assisted with a.m. hygiene. Pt noted to have leaked some liquid stool - hygiene performed. Cath care completed. Pt reporting that she "googled about the numbness" to her RUE and right side of face and that [employer] mentioned that if a "PICC line is dislodged or irritating a nerve" that is could cause some numbness. Dr. Del Valle notified. Contacted [facility] per ETHAN Willis. X-ray to check for placement ordered. Heparin IV infusing w/out infiltration. PICC line flushing well w/ blood return. Will continue to monitor.
[2022-09-03 08:50] LABS: CREATININE, serum 0.65 mg/dL (0.57-1.11); POTASSIUM 3.9 mmol/L (3.5-4.5)
--- NOTE | 2022-09-03 09:15 | NUR ---
Pt is off the unit w/ PT.
[2022-09-03] MEDS ORDERED: SYNTHROID 0.10.15 MG PO (10:38)
[2022-09-03] MEDS ORDERED: MAG-OX 400400 MG/TAB PO (10:38)
[2022-09-03] MEDS ORDERED: BENADRYL25 M2 PO (10:38)
[2022-09-03] MEDS ORDERED: LYRICA 150MG C150 MG PO (10:38)
[2022-09-03] MEDS ORDERED: TYLENOL 500MG500 MG PO (10:38)
[2022-09-03] MEDS ORDERED: METAMUCIL3.4 GM/DOS PO (10:38)
[2022-09-03] MEDS ORDERED: ULTRAM 50MG TAB50 MG PO (10:38)
[2022-09-03] MEDS ORDERED: ROWASA ENEMA60 ML RC (10:38)
[2022-09-03] MEDS ORDERED: ERGOCALCIFER50000 IU PO (10:38)
[2022-09-03] MEDS ORDERED: CYMBALTA 30MG30 MG PO (10:38)
[2022-09-03] MEDS ORDERED: VITAMIND3 5000 PO (10:38)
[2022-09-03] MEDS ORDERED: CITRACAL + D CA1 TAB PO (10:38)
[2022-09-03] MEDS ORDERED: FENTANYL 12MCG TD (10:38)
[2022-09-03] MEDS ORDERED: [UNRECOGNIZED DRUG - OTHER] IV (10:38)
[2022-09-03] MEDS ORDERED: DESITIN MAXIMUM S40% TP (10:38)
[2022-09-03] MEDS ORDERED: CLASSIC PRENATAL PO (10:38)
[2022-09-03] MEDS ORDERED: B-121000 MCG PO (10:38)
[2022-09-03] MEDS ORDERED: CALCITRIOL PO (10:38)
[2022-09-03] MEDS ORDERED: HEPARIN SOD5000 U/ML IV (10:38)
[2022-09-03] MEDS ORDERED: CORTEF 20MG TAB20 MG PO (10:38)
[2022-09-03] MEDS ORDERED: Dilaudid Inj IV (10:38)
[2022-09-03] MEDS ORDERED: CYTOMEL 2525 MCG/TAB PO (10:38)
--- NOTE | 2022-09-03 11:34 | NUR ---
Report called to [facility] nurse. Ambulance transport scheduled to arrive here around noon. Pt is aware.
--- NOTE | 2022-09-03 11:44 | NUR ---
Has lack of transportation kept you from medical appts, meetings, work, or from getting things needed for daily living? NO How often do you feel lonely or isolated from those around you? NEVER Over the past 5 days, how much of the time has pain made it hard for you to sleep? CONSTANTLY Over the past 5 days, how often have you limited your participation in therapy due to pain? CONSTANTLY Over the past 5 days, how often have you limited your day-to-day activities because of pain? CONSTANTLY
--- NOTE | 2022-09-03 12:22 | NUR ---
PT ESCORTED OFF UNIT VIE STRETCHER BY EMS; HEPARING DRIP CONTINUED FOR EMS TRANSFER; PICC LINE IN PLACE
== END 2022-09-03 12:23 | disposition short-term general hospital (02) | DRG 74 ==
PROVIDERS: Internal Medicine; ADMIT Physical Medicine & Rehabilitation Sports Medicine
PROC: 3E033GC Introduction of Other Therapeutic Substance into Peripheral Vein, Percutaneous Approach (ICD-10-PCS; principal; 2022-08-28)
PROC: 02HV33Z Insertion of Infusion Device into Superior Vena Cava, Percutaneous Approach (ICD-10-PCS; 2022-08-29)
PROC: 0DJD8ZZ Inspection of Lower Intestinal Tract, Via Natural or Artificial Opening Endoscopic (ICD-10-PCS; 2022-09-02)
DX: G62.9 Polyneuropathy, unspecified (principal); E27.40 Unspecified adrenocortical insufficiency; Z68.43 Body mass index [BMI] 50.0-59.9, adult; I82.431 Acute embolism and thrombosis of right popliteal vein; R53.81 Other malaise; R26.89 Other abnormalities of gait and mobility; Z73.6 Limitation of activities due to disability; E89.0 Postprocedural hypothyroidism; M54.50 Low back pain, unspecified; M25.559 Pain in unspecified hip; E20.9 Hypoparathyroidism, unspecified; E55.9 Vitamin D deficiency, unspecified; Z98.84 Bariatric surgery status; E66.01 Morbid (severe) obesity due to excess calories; Z79.899 Other long term (current) drug therapy; Z79.891 Long term (current) use of opiate analgesic; Z91.018 Allergy to other foods; E53.8 Deficiency of other specified B group vitamins; R15.9 Full incontinence of feces; R32 Unspecified urinary incontinence; K62.89 Other specified diseases of anus and rectum; R20.0 Anesthesia of skin; R20.2 Paresthesia of skin; G83.11 Monoplegia of lower limb affecting right dominant side; D50.9 Iron deficiency anemia, unspecified; G47.33 Obstructive sleep apnea (adult) (pediatric)
CPT/HCPCS: A4314; A9284; A9503; A9575; C1751; C9113; J0612; J1170; J1644; J1885; J2405; J2704; J7050

== ENCOUNTER 2022-09-09 12:22 | Inpatient (IN) | payer MEDICARE, MEDICAID ==
[~2022-09-09] VITALS: Ht 165.1 cm; Wt 145.7 kg
[~2022-09-09 12:22] MED LIST changes: +B-121000 MCG PO; +BENADRYL25 M2 PO; +CALCITRIOL PO; +CLASSIC PRENATAL PO; +CORTEF 20MG TAB20 MG PO; +CYTOMEL 2525 MCG/TAB PO; +DESITIN MAXIMUM S40% TP; +DULCOLAX STOOL100 MG PO; +Dilaudid Inj IV; +ERGOCALCIFER50000 IU PO; +FENTANYL 12MCG TD; +HEPARIN SOD5000 U/ML IV; +JUNEL FE 1/20 21 TAB PO; +LYRICA 150MG C150 MG PO; +METAMUCIL3.4 GM/DOS PO; +NEURONTIN400 MG/CAP PO; +QUALITY CHOICE1 TA7; +ROWASA ENEMA60 ML RC; +SYNTHROID 0.10.15 MG PO; +VITAMIN B12 1541 TAB PO; +[UNRECOGNIZED DRUG - OTHER] IV
[2022-09-09] MEDS ORDERED: ELIQUIS 5MG PO ×2 (15:53→15:54)
[2022-09-09] MEDS ORDERED: OMNICEF 300MG300 MG PO (15:55)
[2022-09-09] MEDS ORDERED: SYNTHROID0.2 MG/TAB PO (15:56)
[2022-09-09] MEDS ORDERED: TYLENOL 500MG500 MG PO (15:57)
[2022-09-09] MEDS ORDERED: CALCITRIOL PO (15:57)
[2022-09-09] MEDS ORDERED: CALCIUM CITRAT950 MG (15:59)
[2022-09-09] MEDS ORDERED: CHOLECALCIFEROL PO (16:00)
[2022-09-09] MEDS ORDERED: DULCOLAX STOOL100 MG PO (16:02)
[2022-09-09] MEDS ORDERED: CYMBALTA 30MG30 MG PO (16:02)
[2022-09-09] MEDS ORDERED: NEURONTIN400 MG/CAP PO (16:02)
[2022-09-09] MEDS ORDERED: CORTEF 20MG TAB20 MG PO (16:03)
[2022-09-09] MEDS ORDERED: CYTOMEL 2525 MCG/TAB PO (16:04)
[2022-09-09] MEDS ORDERED: MAG-OX 400400 MG/TAB PO (16:05)
[2022-09-09] MEDS ORDERED: PRENATAL VITAMIN PO (16:06)
[2022-09-09] MEDS ORDERED: ULTRAM ER100 MG PO (16:06)
[2022-09-09] MEDS ORDERED: ERGOCALCIFER50000 IU PO (16:08)
[2022-09-09 16:53] VITALS: BP 142/83; PULSE 54; TEMP 98.1
[2022-09-09 17:44] VITALS: BP_SYST 142
--- NOTE | 2022-09-09 17:47 | NUR ---
New pt arrived to unit from [facility] accompanied by transportation personnel at approx 1645. She is a/o x 4, pleasant. Denies pain. SBA provided w/ FWW for transfer from w/c to bed. Supervision provided as pt ambulated to the toilet and had a continent void x 1. Pt reports menses at this time. PICC remains to RUE and was placed in house on 08/29 by [facility]. Cap changed to single lumen port. PICC flushing well w/ blood return. Skin is intact. Re-orientation provided to unit/call light. Pt denies additional needs. Currently sitting up in the recliner to eat dinner. Visitor is in the room.
[2022-09-09 18:30] VITALS: BP_SYST 142
--- NOTE | 2022-09-09 21:00 | NUR ---
ASSISTED SBA WITH WALKER TO BR. VOIDING W/O DIFFICULTY. ON MENSES. DENIES PAIN. READY FOR BED. ABLE TO LIFT LEGS INTO BED. CALL LIGHT IN REACH. BED ALARM SET.
[2022-09-09 22:27] VITALS: BP 127/64
[2022-09-10 06:00] VITALS: BP 123/86; PULSE 50; TEMP 97.7
[2022-09-10 07:00] VITALS: BP_SYST 123
[2022-09-10 07:55] LABS: CALCIUM 7.8 mg/dL (8.4-10.2); CREATININE, serum 0.66 mg/dL (0.57-1.11); POTASSIUM 3.7 mmol/L (3.5-4.5)
--- NOTE | 2022-09-10 10:19 | NUR ---
PATIENT ALERT AND ORIENTED X4. VSS. PATIENT HERE FOR DEBILITY R/T MYXEDEMA COMA. PATIENT DENIES ANY PAIN AT THIS TIME. PICC TO RIGHT UPPER ARM, FLUSHES WELL WITH GOOD BLOOD RETURN. CAP CHANGED THIS AM. PATIENT DENIES ANY FURTHER NEEDS. CALL LIGHT IN REACH.
--- NOTE | 2022-09-10 14:21 | NUR ---
Initial visit; Patient thanked Hat Band Attacher for looking in on her though states she has her own Investigator Cash Shortage. Hat Band Attacher commented on her pictures of her little girls and wished her well.
--- NOTE | 2022-09-10 15:46 | NUR ---
SW met with patient to complete intake. Patient recently admitted to this facility before needing transfer to a higher level of care. Patient lives in [place] with her two children ages 1 and 4. Children are currently staying with a family that belongs to her samaritan and the patient verbalizes that they are safe. She is fully independent with her ADL's and IADL's at the home and has access to transportation. The home they share is a town home and requires approx. 14 steps to get into with a handrail. Patient verbalizes that her landlord is willing to switch her to a lower level with a physcians note stating that she is unable to climb the steps. There are two bathrooms in the home one with a walk in shower and one a tub/shower combo. Her toilet is standard height. No pets in the home. She wears glasses but has has all of her own teeth and denies hearing aids. No tobacco, alcohol or recreational drug use. PCP is and she utilizes [facility] pharmacy for prescriptions. Patient is not legally . She denies having a DPOA-HC established and does not wish to create one at this time. Her mother is living and she has three sisters.
[2022-09-10 18:57] VITALS: BP 109/49; PULSE 84; TEMP 99.3
--- NOTE | 2022-09-10 19:15 | NUR ---
RECEIVED CHANGE OF SHIFT REPORT FROM DAY SHIFT RN. PATIENT RESTING IN BED, NO NEEDS REPORTED AT TIME OF REPORT. CALL LIGHT IN REACH. EXIT ALARM ON.
--- NOTE | 2022-09-10 19:53 | NUR ---
PAGED DR BOCANEGRA'S ONCALL PROVIDER, DR GUTIÉRREZ, TO REPORT CALCIUM LEVEL POST IV CALCIUM INFUSION. WAITING COMPLAINT EVALUATION SUPERVISOR BACK.
--- NOTE | 2022-09-10 19:56 | NUR ---
RECEIVED CALL BACK FROM DR GUTIÉRREZ, DR BOCANEGRA'S ONCALL ASSOC. INFORMED OF POST CALCIUM INFUSION CALCIUM LEVEL OF 8.3. DR BOCANEGRA WILL BE INFORMED OF THIS LEVEL BY DR GUTIÉRREZ.
[2022-09-11 05:15] VITALS: BP 126/65; PULSE 48; TEMP 97.7
--- NOTE | 2022-09-11 05:40 | NUR ---
PATIENT UP TO BATHROOM X2 SBA, VOIDED WITH NO REPORTED PROBLEMS. DENIED ANY NEEDS THROUGH THE NIGHT AT THIS TIME.
[2022-09-11 07:00] VITALS: BP_SYST 126
--- NOTE | 2022-09-11 07:28 | NUR ---
CHANGE OF SHIFT REPORT GIVEN TO DAY SHIFT RNDAVID.
--- NOTE | 2022-09-11 08:59 | NUR ---
Shift report received from the night nurseMarisela RN.
--- NOTE | 2022-09-11 11:00 | NUR ---
Patient resting in bed, denies pain at this time. Patient voice that she's feeling good. PICC line on right upper arm intact. No redness or swelling noted. Patient has no concerns or needs at this time.
--- NOTE | 2022-09-11 14:58 | NUR ---
Has lack of transportation kept you from medical appts, meetings, work, or from getting things needed for daily living? NO How often do you feel lonely or isolated from those around you? NEVER Over the past 5 days, how much of the time has pain made it hard for you to sleep? RARELY OR NOT AT ALL Over the past 5 days, how often have you limited your participation in therapy due to pain? RARELY OR NOT AT ALL Over the past 5 days, how often have you limited your day-to-day activities because of pain? RARELY OR NOT AT ALL Have you had 2 or more falls in the past year or any fall with an injury? NO Did you have major surgery during the 100 days prior to admission? NO
[2022-09-11 16:53] VITALS: BP 133/84; PULSE 58; TEMP 99.3
--- NOTE | 2022-09-11 19:00 | NUR ---
RECEIVED CHANGE OF SHIFT REPORT FROM DAY SHIFT RN.
--- NOTE | 2022-09-11 19:04 | NUR ---
Patient's PICC kube d/c but to decline to have INT inserted today. Patient states she will have it place tomorrow.
[2022-09-12 05:33] VITALS: BP 130/68; PULSE 43; TEMP 98.6
[2022-09-12 07:15] VITALS: BP_SYST 130
--- NOTE | 2022-09-12 07:22 | NUR ---
CHANGE OF SHIFT REPORT GIVEN TO DAY SHIFT TAWNYA LONG.
--- NOTE | 2022-09-12 13:18 | NUR ---
The Interdisciplinary team met to discuss making the patient Independent in her room. Her current Perrin Fall Score is 45 & her Tinetti score is 25. The team feels she is capable of being Independent in her room has she is aware of her deficits/limitations & cognitively able to problem solve her situations.
--- NOTE | 2022-09-12 13:41 | NUR ---
patient was made independent in room by therapy and doctor today. additional nursing order put in also.
--- NOTE | 2022-09-12 14:01 | NUR ---
Admission QIM scores were reviewed by the team. Code of 4 chosen for toilet transfer was determined by team discussion to be the most usual performance before interventions for this patient during the assessment period. Code of 4 chosen for shower/bathe self was determined by team discussion to be the most usual performance before interventions for this patient during the assessment period. Code of 4 chosen for lower body dressing was determined by team discussion to be the most usual performance before interventions for this patient during the assessment period. Code of 4 chosen for walk 10 feet was determined by team discussion to be the most usual performance for this patient during the discharge assessment period. Code of 4 chosen for walk 150 feet was determined by team discussion to be the most usual performance before interventions for this patient during the assessment period.--Trinh Martinez, PD
--- NOTE | 2022-09-12 16:41 | NUR ---
Tank Car Loader met with Patient at bedside to discuss treatment progress and discharge planning. Patient reports to feel like she is progressing in treatment. Per notification from IPR director, SW discussed home care options with Patient. Patient reports to have the [facility] contact information and can call and coordinate for home care through them. Patient presents no further concerns at this time.
[2022-09-12 17:17] VITALS: BP 126/72; PULSE 95; TEMP 97.6
[2022-09-12 21:00] VITALS: BP_SYST 126
--- NOTE | 2022-09-12 21:00 | NUR ---
PT RESTING IN BED. INDEPENDENT IN ROOM. ENC SAFETY. CALL IF NEEDED. VERBALIZED UNDERSTANDING. CALCIUM INFUSION DONE. INT LT ARM DC'D DIRECTED BY [facility] IV THERAPY. PT FORGOT TO ORDER DINNER EARLIER. GOT LUZ ELENA SANDWICH BOX. OLD PICC SITE CDI. CALL LIGHT IN REACH.
[2022-09-13 05:29] VITALS: BP 122/61; PULSE 61; TEMP 98.4
[2022-09-13 07:14] VITALS: BP_SYST 122
--- NOTE | 2022-09-13 07:15 | NUR ---
Shift report received from shift superintendent caustic cresylate RN.
--- NOTE | 2022-09-13 08:11 | NUR ---
Pt remains on Mod I status in her room. She is currently off the unit to work with OT and PT for a few hours. She denies pain or discomfort. Denies nausea. Denies other needs. Call light is in her reach.
--- NOTE | 2022-09-13 10:51 | NUR ---
beamster RN reporting that she was unable to get through the answering service to page Dr. Ferro with patient's post infusion calcium level last night. Result was 8.0. Called [facility] answering service and was told that they do not have a message to receive requests over the weekend to page Dr. Ferro when he is not ironworker wire fence erector. The bilingual medical receptionist stated that in the future, their department needs to be notified. Boats Renter was informed that this nurse is not an employee of [facility]. Boats Renter stated that she would go ahead and page Dr. Ferro, even though he is not ironworker wire fence erector.
--- NOTE | 2022-09-13 10:56 | NUR ---
Callback received from Dr. Ferro. He was informed of pt's calcium level of 8.0. No new orders/changes.
--- NOTE | 2022-09-13 15:29 | NUR ---
Pt sleeping supine in bed. Daughters are here to visit. Call light is in her reach. She remains on Mod I status in her room.
[2022-09-13 17:47] VITALS: BP 103/62; PULSE 112; TEMP 97.5
[2022-09-13 18:30] VITALS: BP_SYST 103
--- NOTE | 2022-09-13 21:00 | NUR ---
PT RESTING IN BED. INDEPENDENT IN ROOM W/WALKER. NO DISTRESS. DENIES PAIN. NO NEEDS. CALL LIGHT IN REACH.
[2022-09-14 05:29] VITALS: BP 134/70; PULSE 53; TEMP 97.6
[2022-09-14 06:58] VITALS: BP_SYST 134
--- NOTE | 2022-09-14 06:58 | NUR ---
Shift report received from night auditor RN. Pt awake and lying supine in bed. Denies pain or discomfort. She continues on Mod I status in room. Denies other needs. Call light in reach.
--- NOTE | 2022-09-14 12:10 | NUR ---
Pt showered independently and stood for the entire duration of the shower. Pt also clipped her own toenails and fingernails.
--- NOTE | 2022-09-14 12:14 | NUR ---
Guide Winder rounds: Patient had finished a shower and was grooming her hair in front of the mirror. Guide Winder visit offered; Patient declined. She stated that soon she would be watching her own muslim services online.
[2022-09-14 18:12] VITALS: BP 100/46; PULSE 84; TEMP 98.4
[2022-09-14 18:30] VITALS: BP_SYST 100
--- NOTE | 2022-09-14 21:00 | NUR ---
PT SLEEPY TONIGHT. ORIENTED. NO DISTRESS. INDEPENDENT IN ROOM W/ WALKER. ENC TO CALL IF NEEDS STAFF FOR SBA/CGA. CALL LIGHT IN REACH. BED ALALRM OFF.
--- NOTE | 2022-09-14 23:05 | NUR ---
CITRACAL+D 3 TABAS DELAYED IN ADMINISTRATION D/ T LOCATING IT IN HOSPITAL.
[2022-09-15 05:15] VITALS: BP 101/57; PULSE 63; TEMP 98.6
[2022-09-15 07:00] VITALS: BP_SYST 101
[2022-09-15 08:26] LABS: BASO % 0.2 % (0.0-2.0); EOS % 0.2 % (0.0-4.0); GRAN # 2.1 K/mm3 (1.4-6.5); GRAN % 39.4 % (42.2-75.2); HEMOGLOBIN 11.3 g/dl (12.5-16.0); LYMPH # 2.6 K/mm3 (1.2-3.4); LYMPH % 47.9 % (20.0-51.0); MEAN CELL VOLUME 86 fl (80.0-100.0); MEAN CORPUSCULAR HEMOGLOBIN 28 pg (27-31); MEAN CORPUSCULAR HGB CONC 32 g/dl (33.0-37.0); MEAN PLATELET VOLUME 9.4 fl (7.4-10.4); MONO # 0.7 K/mm3 (0.1-0.6); MONO % 12.1 % (1.7-9.3); PLATELET COUNT 313 K/mm3 (130-400); REDCELL DISTRIBUTION WIDTH-CV 18.3 % (11.5-14.5)
--- NOTE | 2022-09-15 08:30 | NUR ---
PATIENT IS A&O. VSS. NO C/O N/V OR PAIN. INDEPENDENT IN ROOM. PLAN IS FOR DISCHARGE TOMORROW. HEAD TO TOE ASSESSMENT COMPLETE. AM MEDS GIVEN.
[2022-09-15 08:31] LABS: HEMATOCRIT 35.4 % (37.0-47.0)
[2022-09-15 08:41] LABS: CALCIUM 7.9 mg/dL (8.4-10.2); CREATININE, serum 0.68 mg/dL (0.57-1.11); MAGNESIUM 2.1 mg/dL (1.6-2.6); POTASSIUM 3.9 mmol/L (3.5-4.5)
--- NOTE | 2022-09-15 15:08 | NUR ---
SW attempted to meet with the patient to follow up. The patient appeared to be sleeping and resting peacefully.
[2022-09-15 17:05] VITALS: BP 102/48; PULSE 92; TEMP 98.3
--- NOTE | 2022-09-15 17:19 | NUR ---
Has lack of transportation kept you from medical appts, meetings, work, or from getting things needed for daily living? NO How often do you feel lonely or isolated from those around you? NEVER Over the past 5 days, how much of the time has pain made it hard for you to sleep? NO PAIN Over the past 5 days, how often have you limited your participation in therapy due to pain? NO PAIN Over the past 5 days, how often have you limited your day-to-day activities because of pain? NO PAIN
--- NOTE | 2022-09-15 18:50 | NUR ---
RECEIVED CHANGE OF SHIFT REPORT FROM DAY SHIFT RN.
--- NOTE | 2022-09-15 20:40 | NUR ---
IV SITE DISCONTINUED PER PATIENT REQUEST AFTER CALCIUM INFUSION COMPLETED. PATIENT WITH NO OTHER NEEDS REPORTED.
[2022-09-16 05:30] VITALS: BP 103/52; PULSE 67; TEMP 97.5
--- NOTE | 2022-09-16 06:40 | NUR ---
INFORMED DR BOCANEGRA OF RECENT CALCIUM LEVELS FROM 09/15 PRE AND POST INFUSION, PER DR. VALLE'S ORDER.
[2022-09-16 07:00] VITALS: BP 105/69; PULSE 74; TEMP 97.9
--- NOTE | 2022-09-16 08:00 | NUR ---
PATIENT IS A&O. VSS. NO COMPLAINTS. HEAD TO TOE ASSESSMENT WNL. PATIENT IS INDEPENDENT IN ROOM AND VERY EXCITED ABOUT DISCHARGE HOME THIS AM. PROVIDER ON FLOOR MAKING ROUNDS. COMPUTER SYSTEM DOWN, SEE PAPER CHARTING/COPIES.
--- NOTE | 2022-09-16 11:24 | NUR ---
Pile Driving Nozzleman met with Patient at bedside to follow-up with PAtient's request for home care resources. Pile Driving Nozzleman contacted Marily with [facility] who accepted refferal for Patient to be screened for home care and DME services. Marily was able to conduct a partial screen over the phone and scheduled a follow-up phone call with Patient post discharge for tomorrow, 09-17-22 at 1000. Patient reports to have no other concerns for SW at this time.
--- NOTE | 2022-09-16 11:30 | NUR ---
PATIENT DISCHARGING HOME. GAVE DISCHARGE INSTRUCTION HAND WRITTEN COMPUTER SYSTEM WAS DOWN. PROVIDER CALLED IN DISCHARGE MEDS TO PHARMACY. DISCUSSED F/U APTS WITH PATIENT, SEE COPY ON CHART. ANSWERED QUESTIONS/CONCERNS. NO IV SITE. PATIENT IS DRESSED, PACKED AND ESCORTED OUT VIA AMBULATORY TO PERSONAL VEHICLE WHERE HER FRIEND IS WAITING.
--- NOTE | 2022-09-17 13:54 | NUR ---
The patient discharged back home yesterday, 09/16, with outpatient therapy. [facility] staffed with [facility] Director. The patient plans to contact [facility] herself to set up appointments for outpatiet therapy, due to the phone lines being down yesterday. [facility] notified and faxed the patient's discharge orders to [facility] today. No additional needs at this time.
== END 2022-09-16 11:30 | disposition home or self-care (01) | DRG 814 ==
PROVIDERS: Internal Medicine; ADMIT Physical Medicine & Rehabilitation Sports Medicine
DX: D89.89 Other specified disorders involving the immune mechanism, not elsewhere classified (principal); G04.91 Myelitis, unspecified; N39.0 Urinary tract infection, site not specified; I82.431 Acute embolism and thrombosis of right popliteal vein; E27.40 Unspecified adrenocortical insufficiency; Z68.43 Body mass index [BMI] 50.0-59.9, adult; R53.81 Other malaise; E89.0 Postprocedural hypothyroidism; R32 Unspecified urinary incontinence; R15.9 Full incontinence of feces; G62.9 Polyneuropathy, unspecified; K62.89 Other specified diseases of anus and rectum; E83.51 Hypocalcemia; Z98.84 Bariatric surgery status; E66.01 Morbid (severe) obesity due to excess calories; M62.81 Muscle weakness (generalized); Z79.01 Long term (current) use of anticoagulants; Z79.899 Other long term (current) drug therapy; Z79.2 Long term (current) use of antibiotics; Z79.891 Long term (current) use of opiate analgesic; Z91.018 Allergy to other foods; Z88.5 Allergy status to narcotic agent; Z74.09 Other reduced mobility; R26.89 Other abnormalities of gait and mobility
CPT/HCPCS: J0612; J7040

== ENCOUNTER 2023-06-26 07:38 | Emergency (ER) | payer MEDICARE, MEDICAID ==
[~2023-06-26] VITALS: Ht 162.6 cm; Wt 143.2 kg
[~2023-06-26 07:38] MED LIST changes: +CALCIUM CITRAT950 MG; +CHOLECALCIFEROL PO; +ELIQUIS 5MG PO; +OMNICEF 300MG300 MG PO; +POLYMYXIN B/TRIMETH OD; +PREDNISONE20 MG PO; +PRENATAL VITAMIN PO; +ULTRAM ER100 MG PO
[2023-06-26 07:45] VITALS: TEMP 97.3
[2023-06-26 08:54] LABS: BASO # 0.1 K/mm3 (0.0-0.2); EOS # 0.3 K/mm3 (0.0-0.7); EOS % 4.3 % (0.0-4.0); GRAN # 2.8 K/mm3 (1.4-6.5); GRAN % 47.1 % (42.2-75.2); HEMATOCRIT 40.5 % (37.0-47.0); HEMOGLOBIN 12.8 g/dl (12.5-16.0); LYMPH # 2.1 K/mm3 (1.2-3.4); MEAN CELL VOLUME 93 fl (80.0-100.0); MEAN CORPUSCULAR HEMOGLOBIN 29 pg (27-31); MEAN CORPUSCULAR HGB CONC 32 g/dl (33.0-37.0); MEAN PLATELET VOLUME 9.8 fl (7.4-10.4); MONO # 0.7 K/mm3 (0.1-0.6); MONO % 12.3 % (1.7-9.3); PLATELET COUNT 297 K/mm3 (130-400); RED BLOOD COUNT 4.35 M/mm3 (4.10-5.30); REDCELL DISTRIBUTION WIDTH-CV 16.7 % (11.5-14.5)
[2023-06-26 09:13] LABS: ALBUMIN 3.4 gm/dL (3.5-5.0); BILIRUBIN,TOTAL 0.4 mg/dL (0.2-1.2); CALCIUM 8.9 mg/dL (8.4-10.2); CREATININE, serum 0.67 mg/dL (0.57-1.11); MAGNESIUM 1.9 mg/dL (1.6-2.6); PHOSPHOROUS 2.7 mg/dL (2.3-4.7); POTASSIUM 3.8 mmol/L (3.5-4.5); TOTAL PROTEIN 6.6 gm/dL (6.2-8.1)
[2023-06-26 09:54] VITALS: BP 105/67; PULSE 73
== END 2023-06-26 10:07 | disposition home or self-care (01) ==
LOC: COL.ER 07:38
PROVIDERS: Emergency Medicine
DX: Z00.00 Encounter for general adult medical examination without abnormal findings (principal)